=== PATIENT | female | born 1990 | race Caucasian/White ===

== ENCOUNTER 2020-05-15 16:04 | Inpatient (IN) | payer BC, OTHER ==
[~2020-05-15] VITALS: Ht 162.6 cm; Wt 55.3 kg
[~2020-05-15 16:04] MED LIST: CELEXA10 MG ORAL; HUMALOG 75/255 UNIT1 SUBQ
[2020-05-15 16:16] VITALS: BP 104/58
--- NOTE | 2020-05-15 16:16 | NUR ---
ED Nurse Note: Pt walked in to ED from home c/o hyperglycemia. Per pt, her BS at home was at 500. Pt also c/o nausea/ vomiting, wekaness, dizziness. Stated that her blood sugar has been relatively high for the past 5 days, pt is very compliant with her insulin pump. AAOx4, verbally responsive. No SOB, on room air. ERMD at bedside.
--- NOTE | 2020-05-15 16:20 | NUR ---
ED Nurse Note: IV line established. Blood and urine specimen collected and sent to lab.
--- NOTE | 2020-05-15 16:26 | Emergency Room Report ---
History of Present Illness General Chief Complaint: Abnormal Labs Source: Patient Present Illness HPI Patient is a 29-year-old female past medical history of diabetes type 1 on an insulin pump diagnosed which was 14 who presents to the ER complaining of generalized weakness for the past several days. Patient states that she is woken up in the morning feeling very weak and dizzy. She states that she has had urinary frequency. She also complains of nausea and nonbilious nonbloody vomitus. She denies any fever or chills. She denies any chest pain or shortness of breath. She denies any abdominal pain or diarrhea. She states that she has been waiting on her insulin pump supplies for the past 2 weeks but has backup insulin that she has been administering. She states that her blood sugar at home was over 500. Allergies: Coded Allergies: NO KNOWN ALLERGIES (Unverified Allergy, Unknown, 08/20/15) COVID-19 Screening Contact w/high risk pt: No Experienced COVID-19 symptoms?: No COVID-19 Testing performed OUTPATIENT THERAPIST: No Patient History Social History: Denies: smoking, alcohol use, drug use Last Menstrual Period: 06/06/20 Reviewed Nursing Documentation: PMH: Agreed; PSxH: Agreed Nursing Documentation-PMH Past Medical History: No History, Except For Hx Cardiac Problems: No Hx Diabetes: Yes - Type 1 Hx Cancer: No Hx Gastrointestinal Problems: No Hx Neurological Problems: No Review of Systems All Other Systems: negative except mentioned in HPI Physical Exam Vital Signs Date Time Temp Pulse Resp B/P (MAP) Pulse Ox O2 Delivery O2 Flow Rate FiO2 05/15/20 16:12 98.2 83 18 104/58 (73) 98 Room Air Sp02 EP Interpretation: reviewed, normal General Appearance: no apparent distress, alert, GCS 15, non-toxic Head: normocephalic, atraumatic Eyes: bilateral eye normal inspection, bilateral eye PERRL ENT: hearing grossly normal, normal pharynx, no angioedema, normal voice, dry mucus membranes Neck: full range of motion, supple/symm/no masses Respiratory: chest non-tender, lungs clear, normal breath sounds, speaking full sentences Cardiovascular #1: regular rate, rhythm, no edema Gastrointestinal: normal bowel sounds, non tender, soft, non-distended, no guarding, no rebound Rectal: deferred Genitourinary: no CVA tenderness Musculoskeletal: normal range of motion 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 Due to a high probability of clinically significant, life threatening deterioration, the patient required my highest level of preparedness to intervene emergently and I personally spent this critical care time directly and personally managing the patient. This critical care time included obtaining a history; examining the patient; pulse oximetry; ordering and review of studies; arranging urgent treatment with development of a management plan; evaluation of patient's response to treatment; frequent reassessment; and, discussions with other providers.This critical care time was performed to assess and manage the high probability of imminent, life- threatening deterioration that could result in multi-organ failure. It was exclusive of separately billable procedures and treating other patients and teaching time. Please see MDM section and the rest of the note for further information on patient assessment and treatment. Medical Decision Making Diagnostic Impression: Primary Impression: Diabetic ketoacidosis Additional Impression: Diabetes type 1, uncontrolled ER Course Patient presents with DKA. Patient is hyperglycemic and acidotic. Lactate is mildly elevated at 2.5 and pH on venous blood gas is 7.2. Patient CO2 is low and anion gap is 19. Patient has been given IV fluids as well as 7 units of insulin as a drip and initial bolus. Patient's potassium is only 4.2 therefore I ordered for continuous potassium in half-normal saline at 125/h. Patient's vital signs have been stable. She will be admitted for further treatment and evaluation. Laboratory Tests Test 05/15/20 16:35 05/15/20 16:47 05/15/20 17:41 White Blood Count 7.3 K/UL (4.8-10.8) Red Blood Count 3.85 M/UL (4.20-5.40) L Hemoglobin 11.9 G/DL (12.0-16.0) L Hematocrit 35.8 % (37.0-47.0) L Mean Corpuscular Volume 93 FL (80-99) Mean Corpuscular Hemoglobin 31.0 PG (27.0-31.0) Mean Corpuscular Hemoglobin Concent 33.4 G/DL (32.0-36.0) Red Cell Distribution Width 12.0 % (11.6-14.8) Platelet Count 150 K/UL (150-450) Mean Platelet Volume 9.9 FL (6.5-10.1) Neutrophils (%) (Auto) 79.3 % (45.0-75.0) H Lymphocytes (%) (Auto) 15.9 % (20.0-45.0) L Monocytes (%) (Auto) 4.1 % (1.0-10.0) Eosinophils (%) (Auto) 0.1 % (0.0-3.0) Basophils (%) (Auto) 0.6 % (0.0-2.0) Urine Color Pale yellow Urine Appearance Clear Urine pH 5 (4.5-8.0) Urine Specific [place] 1.005 (1.005-1.035) Urine Protein Negative (NEGATIVE) Urine Glucose (UA) 4+ (NEGATIVE) H Urine Ketones 3+ (NEGATIVE) H Urine Blood 3+ (NEGATIVE) H Urine Nitrite Negative (NEGATIVE) Urine Bilirubin Negative (NEGATIVE) Urine Urobilinogen Normal MG/DL (0.0-1.0) Urine Leukocyte Esterase Negative (NEGATIVE) Urine RBC 5-10 /HPF (0 - 2) H Urine WBC 0-2 /HPF (0 - 2) Urine Squamous Epithelial Cells Occasional /LPF Urine Bacteria Few /HPF (NONE) Sodium Level 131 MMOL/L (136-145) L Potassium Level 4.2 MMOL/L (3.5-5.1) Chloride Level 95 MMOL/L (98-107) L Carbon Dioxide Level 17 MMOL/L (21-32) L Anion Gap 19 mmol/L (5-15) H Blood Urea Nitrogen 9 mg/dL (7-18) Creatinine 1.2 MG/DL (0.55-1.30) Estimated Glomerular Filtration Rate 53.5 mL/min (>60) Glucose Level 557 MG/DL (74-106) *H Lactic Acid Level 2.60 mmol/L (0.4-2.0) H 2.00 mmol/L (0.66-2.22) Calcium Level 9.1 MG/DL (8.5-10.1) Magnesium Level 2.1 MG/DL (1.8-2.4) Total Bilirubin 0.3 MG/DL (0.2-1.0) Aspartate Amino Transferase (AST) 15 U/L (15-37) Alanine Aminotransferase (ALT) 12 U/L (12-78) Alkaline Phosphatase 80 U/L (46-116) Total Protein 7.1 G/DL (6.4-8.2) Albumin 4.0 G/DL (3.4-5.0) Globulin 3.1 g/dL Albumin/Globulin Ratio 1.3 (1.0-2.7) Lipase 83 U/L (73-393) Human Chorionic Gonadotropin, Qual Negative (NEGATIVE) Urine Opiates Screen Negative (NEGATIVE) Urine Barbiturates Screen Negative (NEGATIVE) Phencyclidine (PCP) Screen Negative (NEGATIVE) Urine Amphetamines Screen Negative (NEGATIVE) Urine Benzodiazepines Screen Negative (NEGATIVE) Urine Cocaine Screen Negative (NEGATIVE) Urine Marijuana (THC) Screen Negative (NEGATIVE) Venous Blood pH 7.292 Venous Blood Partial Pressure CO2 36.0 Venous Blood Partial Pressure O2 34.3 Venous Blood HCO3 17.0 Venous Blood Total Carbon Dioxide 36.0 Venous Blood Base Excess -8.7 Venous Blood Carboxyhemoglobin 0.3 % (0.5-1.5) L Methemoglobin 0.8 Acetone Level Positive-small (NEGATIVE) EKG Diagnostic Results Troponin ordered: No - EKG ordered for dizziness secondary to hyperglycemia EKG Time: 16:27 EP Interpretation: Shyanne Keller MD Rate: normal - 75 bpm Rhythm: NSR ST Segments: no acute changes ASA given to the pt in ED: No Rhythm Strip Diag. Results Rhythm Strip Time: 17:32 EP Interpretation: yes - Shyanne Keller MD Rate: 85 bpm Rhythm: NSR, no PVC's, no ectopy Last Vital Signs Date Time Temp Pulse Resp B/P (MAP) Pulse Ox O2 Delivery O2 Flow Rate FiO2 05/15/20 16:16 98.2 83 18 104/58 98 Room Air Disposition: ADMITTED INPATIENT - ICU Condition: Critical Physician Consult: Dr. Tam at 1855 Additional Instructions: Please note that this report is being documented using Sense[employer] technology. This can lead to erroneous entry secondary to incorrect interpretation by the dictating instrument. Shyanne Keller M.D. May 15, 2020 16:26
[2020-05-15 16:59] LABS: APPEARANCE,URINE CLEAR; BILIRUBIN, URINE NEGATIVE (NEGATIVE); COLOR,URINE PALE YELLOW; GLUCOSE, URINE (UA) 4+ (NEGATIVE); KETONES,URINE 3+ (NEGATIVE); LEUKOCYTE ESTERASE ,URINE NEGATIVE (NEGATIVE); NITRITE,URINE NEGATIVE (NEGATIVE); PH,URINE 5 (4.5-8.0); PROTEIN,URINE NEGATIVE (NEGATIVE); UROBILINOGEN,URINE NORMAL MG/DL (0.0-1.0)
[2020-05-15] MEDS ORDERED: Insulin Human Regular 100units/ml 3ml IV ONE (17:00)
[2020-05-15 17:03] LABS: BASOPHILS % (AUTO) 0.6 % (0.0-2.0); EOSINOPHILS % (AUTO) 0.1 % (0.0-3.0); HEMATOCRIT 35.8 % (37.0-47.0); HEMOGLOBIN 11.9 G/DL (12.0-16.0); LYMPHOCYTES % (AUTO) 15.9 % (20.0-45.0); MEAN CORPUSCULAR VOLUME 93 FL (80-99); MONOCYTES % (AUTO) 4.1 % (1.0-10.0); NEUTROPHILS % (AUTO) 79.3 % (45.0-75.0); PLATELET COUNT 150 K/UL (150-450); RED BLOOD COUNT 3.85 M/UL (4.20-5.40); WHITE BLOOD COUNT 7.3 K/UL (4.8-10.8)
[2020-05-15 17:29] LABS: ALBUMIN/GLOBULIN RATIO 1.3 (1.0-2.7); BILIRUBIN,TOTAL 0.3 MG/DL (0.2-1.0); CALCIUM 9.1 MG/DL (8.5-10.1); CREATININE 1.2 MG/DL (0.55-1.30); POTASSIUM 4.2 MMOL/L (3.5-5.1)
[2020-05-15] MEDS ORDERED: Insulin Reg 100 units Premix 100 ML IVPB SCH (17:45)
[2020-05-15] MEDS: 1/2NS w/KCl 20mEq 1000ml 1,000 ML IV SCH (18:03)
--- NOTE | 2020-05-15 19:03 | NUR ---
HAND-OFF: Report given to Leeann MONTE.
[2020-05-15 19:30] VITALS: BP 107/71
[2020-05-15] MEDS ORDERED: LORazepam Inj 2mg/ml 1ml IV PRN (19:30)
[2020-05-15] MEDS ORDERED: Albuterol/Ipratropium 3ml neb HHN PRN (19:30)
[2020-05-15] MEDS ORDERED: Morphine Sulfate 4mg/ml Inj (IV USE ONLY) IVP PRN (19:30)
[2020-05-15] MEDS ORDERED: Insulin Human Regular 100units/ml 3ml IV PRN ×2 (19:30)
[2020-05-15] MEDS ORDERED: Nitroglycerin Subl 0.4mg tab SL PRN (19:30)
[2020-05-15] MEDS ORDERED: Insulin Rate Change 1 Each MISC PRN (19:30)
[2020-05-15] MEDS ORDERED: Miralax 17gm pkt ORAL PRN (19:30)
--- NOTE | 2020-05-15 19:30 | NUR ---
ED Nurse Note: received patient from emerson austin. patient resting in bed with no acute distress. vitals stable tobaseline. iv infusion running as prescribed left hand 22 g and left forarm 20 g noted; intact and patent. discussed plan of care with patient; aware of pending admission. all safety measures met.
[2020-05-15 20:29] LABS: ANION GAP 11 mmol/L (5-15); BLOOD UREA NITROGEN 7 mg/dL (7-18); CALCIUM 7.9 MG/DL (8.5-10.1); CARBON DIOXIDE 22 MMOL/L (21-32); CHLORIDE 107 MMOL/L (98-107); CREATININE 0.9 MG/DL (0.55-1.30); POTASSIUM 3.2 MMOL/L (3.5-5.1); SODIUM 140 MMOL/L (136-145)
[2020-05-15 20:36] LABS: ALANINE AMINOTRANSFERASE 13 U/L (12-78); ALBUMIN 3.3 G/DL (3.4-5.0); ALBUMIN/GLOBULIN RATIO 1.2 (1.0-2.7); ALKALINE PHOSPHATASE 66 U/L (46-116); ASPARTATE AMINO TRANSFERASE 11 U/L (15-37); BILIRUBIN,TOTAL 0.2 MG/DL (0.2-1.0)
[2020-05-15 21:08] VITALS: BP 104/61
[2020-05-15] MEDS ORDERED: Insulin Reg 100 units Premix 100 ML IV SCH (22:00)
[2020-05-15] MEDS: Heparin 5000 units/ml inj SUBQ SCH (22:00)
--- NOTE | 2020-05-15 22:15 | NUR ---
ED Nurse Note: spoke with mak esteves and ermcielo. received er and floor order to d/c insulin drip. per primary and ermd, patient to be downgraded to SDU. updated patient with plan of care; states understand and compliance.
--- NOTE | 2020-05-15 22:30 | NUR ---
ED Nurse Note: insulin drip d/c per md order. reassessed blood glucose; 45. notified ermd. received verbal and written order for d50W ivp and feed patient. noted and carried out. (see downtime md order form)
[2020-05-16] VITALS (7 sets, daily range): BP systolic 87–121; BP diastolic 39–70
--- NOTE | 2020-05-16 | NUR ---
ED Nurse Note: reassessed blood glucose; 195. patient ao4 asymptomatic.
[2020-05-16] MEDS ORDERED: LEXAPRO20 MG ORAL (00:36)
[2020-05-16] MEDS ORDERED: GABAPENTIN100 MG ORAL (00:36)
--- NOTE | 2020-05-16 00:40 | NUR ---
TRANSFER TO FLOOR: Patient transferred to sdu 245-1 as ordered, per love esteves. report given to cathleen austin. patient stable for transport. transferred to unit via gurney with 2 rn. belongings and admission packet sent with patient.
--- NOTE | 2020-05-16 00:45 | NUR ---
NURSE NOTES: received pt from Silverio Umaña RN from ER. pt is awake and AOx4 at this time. pt states no pain at this time. pt bilateral eyes PERLLA 3mm. able to follow all the commands, no skin issue. pt has steady gait. left hand 22g left FA 20G IV sites are intact, clean, and patent. no allergies noted. all assessment done with pt. belonging list signed by pt. 15 pills founded from pt's belongings and put in the security bag receipt # [id number]. will send down to pharmacy in AM. call light within reach. will continue to monitor pt with plan of care. bed at the lowest positioned, alarmed, and locked. will continue to monitor pt with plan of care.
--- NOTE | 2020-05-16 00:46 | NUR ---
NURSE NOTES: pt is in RA no SOB noted, O2sat is at 100%.
--- NOTE | 2020-05-16 00:47 | NUR ---
NURSE NOTES: purchasing administrator on, VS stable. new gown and new blanket provided.
--- NOTE | 2020-05-16 01:34 | NUR ---
ED Nurse Note: 1st bag of [id number] initiated at 100ml/hr.
[2020-05-16] MEDS: 1/2NS w/KCl 20mEq 1000ml 1,000 ML IV SCH ×3 (01:45→17:01)
--- NOTE | 2020-05-16 01:45 | NUR ---
NURSE NOTES: non-admin for 1/2 NS with KCL 20meq that is scheduled on 0145 due to order from ER.
--- NOTE | 2020-05-16 02:35 | NUR ---
ED Nurse Note: continued [id number] infusion with 2nd bag with a rate of 100ml/hr.
--- NOTE | 2020-05-16 02:39 | NUR ---
NURSE NOTES: left voice mail to Dr. Wolff regarding admission order. and notified pt's Insulin is 266 at this time after getting D50% due to low BS (45)from ER. will wait for call back. call light within reach. will continue to monitor pt.
--- NOTE | 2020-05-16 04:01 | NUR ---
NURSE NOTES: pt is sleeping at this moment, no SOB noted. will continue to monitor pt,. call light within reach.
[2020-05-16 04:54] LABS: ANION GAP 10 mmol/L (5-15); BLOOD UREA NITROGEN 4 mg/dL (7-18); CALCIUM 8.1 MG/DL (8.5-10.1); CARBON DIOXIDE 22 MMOL/L (21-32); CHLORIDE 103 MMOL/L (98-107); POTASSIUM 4.1 MMOL/L (3.5-5.1); SODIUM 135 MMOL/L (136-145)
[2020-05-16 05:32] LABS: ALANINE AMINOTRANSFERASE 8 U/L (12-78); ALBUMIN 3.4 G/DL (3.4-5.0); ALKALINE PHOSPHATASE 70 U/L (46-116); ASPARTATE AMINO TRANSFERASE 20 U/L (15-37); BILIRUBIN,DIRECT < 0.1 MG/DL (0.0-0.3); BILIRUBIN,TOTAL 0.2 MG/DL (0.2-1.0); PHOSPHORUS 3.4 MG/DL (2.5-4.9)
--- NOTE | 2020-05-16 06:54 | NUR ---
NURSE NOTES: notified Dr. Wolff regarding pt's high blood sugar, 402 at 0500 AM. and now 0630 Blood Sugar is 382 after insulin given. will wait for call back. call light within reach. will continue to monitor pt.
--- NOTE | 2020-05-16 07:38 | NUR ---
NURSE HAND-OFF REPORT: Important Events on Shift: high BS, please follow up on sliding scale on BS Patient Status: stable Diet: NPO Pending Orders: n.a Pending Results/Labs:n/a Pending MD notification: Dr. Wolff regarding still high BS. Latest Vital Signs: Temperature 98.0 , Pulse 84 , B/P 119 /57 , Respiratory Rate 20 , O2 SAT 98 , Room Air, O2 Flow Rate . Vital Sign Comment: stable EKG Rhythm: Sinus Rhythm Rhythm change?: N MD Notified?: - MD Response: Latest Simons Fall Score: 35 Fall Risk: Medium Risk Safety Measures: Call light , Bed Alarm Zone 3, Side Rails Side Rails x3, Bed position Low and Locked. Fall Precautions: Yellow Socks Yellow Gown Door Sign Patient Fall Education Report given to Carolina BARRERA,
--- NOTE | 2020-05-16 07:40 | NUR ---
NURSE NOTES: Report received from Se Raya RN.Pt awake,alert sitting up on bed noted no resp distress on RA,no signs of pain or discomfort,SR on the monitor,kept NPO,skin warm and dry IV site to LFA and LH intact with IVF NS at 150 ml/hr,SR up x2 HOB elevated bed lock in low position,will continue with plans of care.
[2020-05-16] MEDS: Heparin 5000 units/ml inj SUBQ SCH ×2 (09:26→21:07)
--- NOTE | 2020-05-16 09:30 | NUR ---
NURSE NOTES: Pt up to bathroom with steady gait, pt voided and vomitting inside the bathroom.Verbalized feeling hungry. Pt informed that Dr Wolff will come and make rounds anytime soon.
--- NOTE | 2020-05-16 10:02 | NUR ---
CASE MANAGEMENT: INITIAL REVIEW 05/15/2020 29 YO F PRESENTED TO ED FROM HOME CC: BLOOD SUGAR 526 PMHx; DM1 SI;DKA VS: T 98.2 HR 83 RR 18 B/P 104/58 SATS 98% ON RA LABS: NA 131 CL 95 CO2 17 GLU 557 LACTIC ACID 2.6 UA (+KETONES AND ACETONE) IS:NS BOLUS X2 HUMAN INSULIN 7 UNITS IV X1 INSULIN DRIP INITIATED KCL IV X1 PATIENT ADMITTED TO SDU 05/15/2020 @ 1850 DCP: HOME CONCURRENT REVIEW FOR 05/16/2020 SI;DKA T 98.1 HR 84 RR 20 B/P 119/57 SATS 98% ON RA LABS: NA 135 BUN 4 GLU 377 CA 8.1 IS:NS @ 150 ML/HR SDU
--- NOTE | 2020-05-16 11:11 | Consultation ---
History of Present Illness General Date patient seen: May 16, 2020 Chief Complaint: Abnormal Labs Present Illness HPI 29-year-old female with PMHx of diabetes since age 15, on an insulin pump presented to the ER complaining of generalized weakness for the past several days. She states that she has had urinary frequency. She also complains of nausea and nonbilious nonbloody vomitus. She states that she has been waiting on her insulin pump supplies for the past 2 weeks but has backup insulin that she has been administering. She states that her blood sugar at home was over 500. She received aggressive IV hydration and Insulin in ER and admitted to [facility] for further treatment. Allergies: Coded Allergies: NO KNOWN ALLERGIES (Unverified Allergy, Unknown, 08/20/15) Medication History Scheduled Citalopram Hydrobromide (Celexa), 20 MG ORAL DAILY, (Reported) Escitalopram Oxalate* (Lexapro*), 20 MG ORAL BID, (Reported) Gabapentin* (Gabapentin*), 100 MG ORAL PRN, (Reported) Miscellaneous Medications Insulin Human Lispro (Humalog), 0.5 SUBQ, (Reported) Patient History Healthcare decision maker Resuscitation status Advanced Directive on File Past Medical/Surgical History Past Medical/Surgical History: (1) Diabetes mellitus Review of Systems All Other Systems: negative except mentioned in HPI Physical Exam General Appearance: thin Lines, tubes and drains: peripheral HEENT: normocephalic, atraumatic Neck: non-tender, normal alignment Respiratory/Chest: chest wall non-tender, lungs clear, normal breath sounds Abdomen: normal bowel sounds, non tender Genitourinary/Rectal: normal genital exam Extremities: normal range of motion, non-tender 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 II-XII grossly normal Last 24 Hour Vital Signs Date Time Temp Pulse Resp B/P (MAP) Pulse Ox O2 Delivery O2 Flow Rate FiO2 05/16/20 08:00 98.1 68 18 121/70 (87) 97 05/16/20 08:00 78 05/16/20 04:00 Room Air 05/16/20 04:00 98.0 84 20 119/57 (77) 98 05/16/20 03:58 69 05/16/20 01:22 Room Air 05/16/20 01:09 74 05/16/20 00:40 98.2 72 16 110/60 99 Room Air 05/16/20 00:00 98.2 72 16 110/60 99 Room Air 05/15/20 21:08 98.2 74 13 104/61 100 Room Air 05/15/20 19:30 98.2 75 13 107/71 100 Room Air 05/15/20 16:16 98.2 83 18 104/58 98 Room Air 05/15/20 16:12 98.2 83 18 104/58 (73) 98 Room Air Intake and Output 05/15/20 05/16/20 19:00 07:00 Intake Total 1000 ml Balance 1000 ml Intake IV Total 1000 ml # Voids 4 Laboratory Tests Test 05/15/20 16:35 05/15/20 16:47 05/15/20 17:41 05/15/20 19:30 White Blood Count 7.3 K/UL (4.8-10.8) Red Blood Count 3.85 M/UL (4.20-5.40) L Hemoglobin 11.9 G/DL (12.0-16.0) L Hematocrit 35.8 % (37.0-47.0) L Mean Corpuscular Volume 93 FL (80-99) Mean Corpuscular Hemoglobin 31.0 PG (27.0-31.0) Mean Corpuscular Hemoglobin Concent 33.4 G/DL (32.0-36.0) Red Cell Distribution Width 12.0 % (11.6-14.8) Platelet Count 150 K/UL (150-450) Mean Platelet Volume 9.9 FL (6.5-10.1) Neutrophils (%) (Auto) 79.3 % (45.0-75.0) H Lymphocytes (%) (Auto) 15.9 % (20.0-45.0) L Monocytes (%) (Auto) 4.1 % (1.0-10.0) Eosinophils (%) (Auto) 0.1 % (0.0-3.0) Basophils (%) (Auto) 0.6 % (0.0-2.0) Urine Color Pale yellow Urine Appearance Clear Urine pH 5 (4.5-8.0) Urine Specific [place] 1.005 (1.005-1.035) Urine Protein Negative (NEGATIVE) Urine Glucose (UA) 4+ (NEGATIVE) H Urine Ketones 3+ (NEGATIVE) H Urine Blood 3+ (NEGATIVE) H Urine Nitrite Negative (NEGATIVE) Urine Bilirubin Negative (NEGATIVE) Urine Urobilinogen Normal MG/DL (0.0-1.0) Urine Leukocyte Esterase Negative (NEGATIVE) Urine RBC 5-10 /HPF (0 - 2) H Urine WBC 0-2 /HPF (0 - 2) Urine Squamous Epithelial Cells Occasional /LPF Urine Bacteria Few /HPF (NONE) Sodium Level 131 MMOL/L (136-145) L 140 MMOL/L (136-145) Potassium Level 4.2 MMOL/L (3.5-5.1) 3.2 MMOL/L (3.5-5.1) L Chloride Level 95 MMOL/L (98-107) L 107 MMOL/L (98-107) Carbon Dioxide Level 17 MMOL/L (21-32) L 22 MMOL/L (21-32) Anion Gap 19 mmol/L (5-15) H 11 mmol/L (5-15) Blood Urea Nitrogen 9 mg/dL (7-18) 7 mg/dL (7-18) Creatinine 1.2 MG/DL (0.55-1.30) 0.9 MG/DL (0.55-1.30) Estimat Glomerular Filtration Rate 53.5 mL/min (>60) > 60 mL/min (>60) Glucose Level 557 MG/DL (74-106) *H 241 MG/DL (74-106) #H Lactic Acid Level 2.60 mmol/L (0.4-2.0) H 2.00 mmol/L (0.66-2.22) Calcium Level 9.1 MG/DL (8.5-10.1) 7.9 MG/DL (8.5-10.1) L Magnesium Level 2.1 MG/DL (1.8-2.4) Total Bilirubin 0.3 MG/DL (0.2-1.0) 0.2 MG/DL (0.2-1.0) Aspartate Amino Transf (AST/SGOT) 15 U/L (15-37) 11 U/L (15-37) L Alanine Aminotransferase (ALT/SGPT) 12 U/L (12-78) 13 U/L (12-78) Alkaline Phosphatase 80 U/L (46-116) 66 U/L (46-116) Total Protein 7.1 G/DL (6.4-8.2) 6.1 G/DL (6.4-8.2) L Albumin 4.0 G/DL (3.4-5.0) 3.3 G/DL (3.4-5.0) L Globulin 3.1 g/dL 2.8 g/dL Albumin/Globulin Ratio 1.3 (1.0-2.7) 1.2 (1.0-2.7) Lipase 83 U/L (73-393) Human Chorionic Gonadotropin, Qual Negative (NEGATIVE) Urine Opiates Screen Negative (NEGATIVE) Urine Barbiturates Screen Negative (NEGATIVE) Phencyclidine (PCP) Screen Negative (NEGATIVE) Urine Amphetamines Screen Negative (NEGATIVE) Urine Benzodiazepines Screen Negative (NEGATIVE) Urine Cocaine Screen Negative (NEGATIVE) Urine Marijuana (THC) Screen Negative (NEGATIVE) Venous Blood pH 7.292 Venous Blood Partial Pressure CO2 36.0 Venous Blood Partial Pressure O2 34.3 Venous Blood HCO3 17.0 Venous Blood Total Carbon Dioxide 36.0 Venous Blood Base Excess -8.7 Venous Blood Carboxyhemoglobin 0.3 % (0.5-1.5) L Methemoglobin 0.8 Acetone Level Positive-small (NEGATIVE) Test 05/16/20 01:19 05/16/20 03:00 05/16/20 05:13 05/16/20 06:48 POC Whole Blood Glucose Pending 402 MG/DL (74-106) H Pending Prothrombin Time 11.1 SEC (9.30-11.50) Prothromb Time International Ratio 1.0 (0.9-1.1) Activated Partial Thromboplast Time 25 SEC (23-33) Sodium Level 135 MMOL/L (136-145) L Potassium Level 4.1 MMOL/L (3.5-5.1) Chloride Level 103 MMOL/L (98-107) Carbon Dioxide Level 22 MMOL/L (21-32) Anion Gap 10 mmol/L (5-15) Blood Urea Nitrogen 4 mg/dL (7-18) L Creatinine 1.0 MG/DL (0.55-1.30) Estimat Glomerular Filtration Rate > 60 mL/min (>60) Glucose Level 377 MG/DL (74-106) #H Calcium Level 8.1 MG/DL (8.5-10.1) L Phosphorus Level 3.4 MG/DL (2.5-4.9) Total Bilirubin 0.2 MG/DL (0.2-1.0) Direct Bilirubin < 0.1 MG/DL (0.0-0.3) Aspartate Amino Transf (AST/SGOT) 20 U/L (15-37) Alanine Aminotransferase (ALT/SGPT) 8 U/L (12-78) L Alkaline Phosphatase 70 U/L (46-116) Total Protein 5.8 G/DL (6.4-8.2) L Albumin 3.4 G/DL (3.4-5.0) Test 05/16/20 09:22 POC Whole Blood Glucose Pending Height (Feet): 5 Height (Inches): 4.00 Weight (Pounds): 121 Medications Current Medications Medications (Trade) Dose Ordered Sig/Kathi Route PRN Reason Start Time Stop Time Status Last Admin Dose Admin Acetaminophen (Tylenol) 650 mg Q4H PRN ORAL Fever 05/15/20 19:30 06/14/20 19:29 Albuterol/ Ipratropium (Albuterol/ Ipratropium) 3 ml Q4H PRN HHN Shortness of Breath 05/15/20 19:30 05/20/20 19:29 Dextrose (Dextrose 50%) 25 ml Q30M PRN IV HYPOGLYCEMIA 05/15/20 19:30 08/13/20 19:29 Dextrose (Dextrose 50%) 50 ml Q30M PRN IV Hypoglycemia 05/15/20 19:30 08/13/20 19:29 Heparin Sodium (Porcine) (Heparin 5000 units/ml) 5,000 units EVERY 12 HOURS SUBQ 05/15/20 22:00 06/29/20 21:59 05/16/20 09:26 Insulin Human Regular (NovoLIN R) 5 units PRN PRN IV BS 200-299 05/15/20 19:30 08/13/20 19:29 Insulin Human Regular (NovoLIN R) 10 units PRN PRN IV BS=>300 05/15/20 19:30 08/13/20 19:29 05/16/20 05:41 Lorazepam (Ativan 2mg/ml 1ml) 2 mg Q2H PRN IV agitation 05/15/20 19:30 05/22/20 19:29 Miscellaneous Medication (Insulin Rate Change) 1 ea PRN PRN MISC To Patient Comfort 05/15/20 19:30 08/13/20 19:29 Morphine Sulfate (Morphine Sulfate) 4 mg Q4H PRN IVP Severe Pain (Pain Scale 7-10) 05/15/20 19:30 05/22/20 19:29 Nitroglycerin (Ntg) 0.4 mg Q5M PRN SL Prn Chest Pain 05/15/20 19:30 06/14/20 19:29 Ondansetron HCl (Zofran) 4 mg Q6H PRN IVP Nausea & Vomiting 05/15/20 19:30 06/14/20 19:29 Polyethylene Glycol (Miralax) 17 gm DAILYPRN PRN ORAL Constipation 05/15/20 19:30 06/14/20 19:29 Sodium 1,000 ml @ 125 mls/hr Q8H IV 05/15/20 17:45 06/14/20 17:44 05/15/20 18:03 Sodium Chloride 1,000 ml @ 150 mls/hr Q6H40M IV 05/15/20 22:00 06/14/20 21:59 05/16/20 05:09 Assessment/Plan Problem List: (1) Diabetic ketoacidosis ICD Codes: E13.10 - Other specified diabetes mellitus with ketoacidosis without coma SNOMED: 48829602, [id number] Assessment/Plan: iv fluids anion gap closed already symptomatic treatment sliding scale endocrinology to see dvt prophylaxis symptomatic treatment. Sterling Wolff MD May 16, 2020 11:11
--- NOTE | 2020-05-16 11:30 | NUR ---
NURSE NOTES: Dr Wolff at bedside,orders for diet ordered.Informed re pt's low BP87/39,ordered for 1 L bolus of NS.
--- NOTE | 2020-05-16 12:00 | NUR ---
NURSE NOTES: BS 525 ,pt given 14 units of Novolog Insulin SQ as pre MD order.
--- NOTE | 2020-05-16 13:30 | NUR ---
NURSE NOTES: Pt's BP normalized after giving 1 L of NS BP 116/54,pt verbalized feeling much better.
--- NOTE | 2020-05-16 13:47 | NUR ---
PROJECT DEVELOPMENT LEADER NOTE SW met w/ pt to discuss case management social worker concerns/screen SI. Pt presents as A&O4x. PT resides w/ her parents at [address], [place] [address]. Pt reports hx of Anxiety, currently taking Lexapro and Gabapentin, seeing the outpatient psychiatrist and therapist. Pt denies having suicidal thoughts/ideation. Pt does not have any social service concerns/needs at this time. Emergency contacts: Owen Barraza (step father) [phone] and Gretel (mother) [phone]
--- NOTE | 2020-05-16 15:57 | History & Physical ---
History and Physical History & Physicial Derek Brandt MD May 16, 2020 15:57
--- NOTE | 2020-05-16 16:20 | Cardiology Report ---
APPROVED REPORT EKG Measurement Heart [id number] MD [id number] <Conclusion> Normal sinus rhythm with sinus arrhythmia Normal ECG
[2020-05-16] MEDS: NovoLOG Insulin Flexpen SUBQ SCH ×2 (16:59→21:07)
--- NOTE | 2020-05-16 17:00 | NUR ---
NURSE NOTES: Pt stable,BP 111/57 ,BS 292,covered with insulin sliding scale,pt verbalized feeling better.
--- NOTE | 2020-05-16 17:26 | NUR ---
INSURANCE FAXED PROGRESS NOTES AND REVIEW TO [facility] [place] P:[phone] F:[phone] (FAX CLINICALS)
[2020-05-16] MEDS ORDERED: BENADRYL25 MG ORAL (18:54)
[2020-05-16] MEDS ORDERED: VITAMIN D325 MC1 PO (18:54)
--- NOTE | 2020-05-16 19:07 | NUR ---
NURSE HAND-OFF REPORT: Important Events on Shift:BS down to 292,BP normal 111/57 Patient Status: Stable Diet: Pending Orders: N/A Pending Results/Labs:N/A Pending MD notification:N/A Latest Vital Signs: Temperature 98.4 , Pulse 109 , B/P 111 /57 , Respiratory Rate 18 , O2 SAT 100 , Room Air, O2 Flow Rate . Vital Sign Comment: EKG Rhythm: Sinus Rhythm Rhythm change?: N MD Notified?: - MD Response: Latest Simons Fall Score: 35 Fall Risk: Medium Risk Safety Measures: Call light Within Reach, Bed Alarm Zone 2, Side Rails Side Rails x2, Bed position Low and Locked. Fall Precautions: Yellow Socks Yellow Gown Door Sign Patient Fall Education Report given to Se Raya RN..
--- NOTE | 2020-05-16 19:08 | NUR ---
NURSE NOTES: received pt from Erica Adkins RN. pt is awake and AOx4 at this time. pt states no pain at this time. no SOB noted pt is in RA, O2 sat is at 100%. pt bilateral eyes PERLLA 3 mm. able to follow all the commands, no skin issue noted. left hand 22g left FA 20G IV sites are intact, clean, and patent. no active bleeding noted. pt states no feeling of N/V. ABD soft, round and no tender noted. call light within reach. will continue to monitor pt with plan of care. bed at the lowest positioned, alarmed, and locked. will continue to monitor pt with plan of care.
--- NOTE | 2020-05-16 20:40 | NUR ---
NURSE NOTES: pt family at the bedside. call light within reach.
--- NOTE | 2020-05-16 23:00 | History and Physical Report ---
DATE OF ADMISSION: 05/15/2020 CHIEF COMPLAINT: Weakness, fatigue, abnormal labs. HISTORY OF PRESENT ILLNESS: This 29-year-old female with past medical history significant for diabetes type 1, was on an insulin pump, as well as history of depression and anxiety with prior history of suicidal ideation, who presented to the hospital complaining about elevated blood glucose level. The patient was noted that she ran out of insulin from the insulin pump and was giving herself insulin injection. She woke up in the morning and felt very weak and dizzy. She stated that she felt that she has urinary tract infection associated with nausea and nonbilious, nonbloody emesis. The patient denies any fever, chills, chest pain, shortness of breath, abdominal pain, or diarrhea. She has been waiting to get her insulin pump supply for the past two weeks and noted that blood glucose was over 500. Shortly after initial evaluation in the emergency department, the patient was admitted to the hospital with DKA. PAST MEDICAL HISTORY/PAST SURGICAL HISTORY: As above, history of insulin-dependent diabetic type 1, depression and anxiety. MEDICATIONS AT HOME: Significant for insulin, Lexapro 20 mg p.o. nightly, and gabapentin p.r.n. ALLERGIES: No known drug allergies. SOCIAL HISTORY: The patient denies any smoking, alcohol, or drugs. 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 FAMILY HISTORY: Noncontributory. REVIEW OF SYSTEMS: Mostly as above. Denies any dysuria, frequency, or hematuria. PHYSICAL EXAMINATION: VITAL SIGNS: On admission, temperature 98.2, pulse of 83, respirations 18, and blood pressure 104/58. GENERAL: The patient is awake and responsive, in no acute distress. HEAD AND NECK: Pupils are equal and reactive to light. Extraocular movements are intact. Neck was supple. No JVD. LUNGS: Good air entry with no wheezing or rales. HEART: S1, S2. Regular rhythm. No gallops. ABDOMEN: Soft, nondistended, and nontender. Positive bowel sounds. EXTREMITIES: No cyanosis, clubbing, or edema. NEUROLOGIC: Cranial nerves II through XII grossly normal. Motor is 5/5 in all extremities. Gait is intact. RECTAL/GENITOURINARY: Refused and deferred. PSYCHIATRIC: Mood and affect is anxious. LABORATORY DATA: On admission, WBC of 7.3, hemoglobin 11, hematocrit 35, platelets 150,000. ABG, pH of 7.29, pCO2 of 36, pO2 of 34. This was venous BG. The patient's sodium is 131, potassium 4.2, chloride 95, bicarb 17, BUN 9, creatinine 1.2. Glucose level is 557. Lactic acid 2.60. Liver functions essentially unremarkable. Beta-HCG is negative. Lipase is 83. PT of 11, INR 1.0, PTT of 25. Urine drug screen is negative. Acetone level is positive, small. Urinalysis - +4 glucose, +3 ketones, negative nitrite, negative leukocytes, 5 to 10 rbc's. ASSESSMENT: 1. Uncontrolled diabetes type 1 with diabetic ketoacidosis. 2. History of depression and anxiety. 3. Hyponatremia. PLAN: Admit the patient to step-down. We will follow up with the aggressive IV hydration. We will monitor blood glucose level closely and we will try to the insulin drip. Follow up with Dr. Wolff, consultation from Pulmonary and Critical Care. Discussed with the patient as well as mother extensively at bedside. DVT prophylaxis, heparin subcutaneous. Code status is Full Code. Derek Brandt M.D. DR: ANAYA JOB#: [id number] CC:
[2020-05-17] VITALS: BP 128/68
[2020-05-17] MEDS: 1/2NS w/KCl 20mEq 1000ml 1,000 ML IV SCH (01:23)
--- NOTE | 2020-05-17 01:23 | NUR ---
NURSE NOTES: 0.45NS KCL 20meq not given because it is order from ER.
--- NOTE | 2020-05-17 03:00 | NUR ---
NURSE NOTES: pt is sleeping at this time, O2sat is at 100%. no SOB noted. call light within reach. will continue to monitor pt.
[2020-05-17 04:00] VITALS: BP 104/59
[2020-05-17] MEDS: NovoLOG Insulin Flexpen SUBQ SCH ×6 (05:33→20:57)
--- NOTE | 2020-05-17 06:59 | NUR ---
NURSE HAND-OFF REPORT: Important Events on Shift: stable, need to follow up with long acting insuline Patient Status: stable Diet: CCHO Pending Orders: n/a Pending Results/Labs:n/a Pending MD notification:n/a Latest Vital Signs: Temperature 98.0 , Pulse 93 , B/P 104 /59 , Respiratory Rate 20 , O2 SAT 100 , Room Air, O2 Flow Rate . Vital Sign Comment: stable EKG Rhythm: Sinus Rhythm Rhythm change?: N MD Notified?: - MD Response: Latest Simons Fall Score: 35 Fall Risk: Medium Risk Safety Measures: Call light Within Reach, Bed Alarm Zone 2, Side Rails Side Rails x2, Bed position Low and Locked. Fall Precautions: Yellow Socks Yellow Gown Door Sign Patient Fall Education Report given to Sienna BARRERA,
--- NOTE | 2020-05-17 07:30 | NUR ---
NURSE NOTES: Received patient alert oriented denies any pain and discomfort. Receiving Ns @ 150 cc/hr at left FA. No sign and symptoms of fluid retention noted.Will continue with the plan of care.
[2020-05-17] MEDS: Heparin 5000 units/ml inj SUBQ SCH ×2 (08:19→20:58)
[2020-05-17 08:29] VITALS: BP 136/66
[2020-05-17 09:28] LABS: ALANINE AMINOTRANSFERASE 39 U/L (12-78); ALBUMIN 3.3 G/DL (3.4-5.0); ALBUMIN/GLOBULIN RATIO 1.1 (1.0-2.7); ALKALINE PHOSPHATASE 71 U/L (46-116); ANION GAP 15 mmol/L (5-15); ASPARTATE AMINO TRANSFERASE 85 U/L (15-37); BILIRUBIN,TOTAL 0.3 MG/DL (0.2-1.0); BLOOD UREA NITROGEN 6 mg/dL (7-18); CALCIUM 8.2 MG/DL (8.5-10.1); CARBON DIOXIDE 18 MMOL/L (21-32); CHLORIDE 104 MMOL/L (98-107); PHOSPHORUS 1.6 MG/DL (2.5-4.9); POTASSIUM 3.7 MMOL/L (3.5-5.1); SODIUM 136 MMOL/L (136-145)
--- NOTE | 2020-05-17 11:30 | NUR ---
NURSE NOTES: Patient blood sugar 412mg/dl given 14 units of insulin. Left message with Dr Castro admissions recruiter for Dr Burns.
[2020-05-17] MEDS ORDERED: Tubing IV Secondary IV ONE (12:07)
[2020-05-17 12:19] VITALS: BP 103/59
[2020-05-17] MEDS: Levemir Flexpen SUBQ SCH ×2 (15:02→20:57)
[2020-05-17 16:00] VITALS: BP 120/59
--- NOTE | 2020-05-17 17:07 | NUR ---
CASE MANAGEMENT:REVIEW SI;DKA. HYPONATREMIA. 99.0 108 20 136/66 100% ON RA BG 431 CA 8.2 AST 85 IS;INSULIN NOVOLOG SUBQ QID INSULIN LEVEMIR SUBQ Q12 HEPARIN SUBQ Q12 IVF NS @ 150 ML/HR SAQIB STATUS DCP;FROM HOME
--- NOTE | 2020-05-17 17:10 | NUR ---
INSURANCE FAXED PROGRESS NOTES AND REVIEW TO [facility] P:[phone] F:[phone] (FAX CLINICALS) AUTH# [id number]
--- NOTE | 2020-05-17 17:52 | Internal Med Progress Note ---
Subjective Date of Service: May 17, 2020 Physician Name Alfredo Chacon Attending Physician Derek Brandt MD Current Medications Medications (Trade) Dose Ordered Sig/Kathi Route PRN Reason Start Time Stop Time Status Last Admin Dose Admin Acetaminophen (Tylenol) 650 mg Q4H PRN ORAL Fever 05/15/20 19:30 06/14/20 19:29 Albuterol/ Ipratropium (Albuterol/ Ipratropium) 3 ml Q4H PRN HHN Shortness of Breath 05/15/20 19:30 05/20/20 19:29 Dextrose (Dextrose 50%) 25 ml Q30M PRN IV Hypoglycemia 05/17/20 14:15 08/15/20 14:14 Dextrose (Dextrose 50%) 50 ml Q30M PRN IV Hypoglycemia 05/17/20 14:15 08/15/20 14:14 Escitalopram Oxalate (Lexapro) 20 mg QHS ORAL 05/16/20 21:00 06/15/20 20:59 05/16/20 21:06 Heparin Sodium (Porcine) (Heparin 5000 units/ml) 5,000 units EVERY 12 HOURS SUBQ 05/15/20 22:00 06/29/20 21:59 05/17/20 08:19 Insulin Aspart (NovoLOG) BEFORE MEALS AND HS SUBQ 05/17/20 16:30 08/15/20 16:29 05/17/20 16:30 Insulin Aspart (NovoLOG) 10 units NOVOTIAC SUBQ 05/17/20 14:30 08/15/20 14:29 05/17/20 17:13 Insulin Detemir (Levemir) 15 units Q12HR SUBQ 05/17/20 14:30 08/15/20 14:29 05/17/20 15:02 Lorazepam (Ativan 2mg/ml 1ml) 2 mg Q2H PRN IV agitation 05/15/20 19:30 05/22/20 19:29 Morphine Sulfate (Morphine Sulfate) 4 mg Q4H PRN IVP Severe Pain (Pain Scale 7-10) 05/15/20 19:30 05/22/20 19:29 Nitroglycerin (Ntg) 0.4 mg Q5M PRN SL Prn Chest Pain 05/15/20 19:30 06/14/20 19:29 Ondansetron HCl (Zofran) 4 mg Q6H PRN IVP Nausea & Vomiting 05/15/20 19:30 06/14/20 19:29 Polyethylene Glycol (Miralax) 17 gm DAILYPRN PRN ORAL Constipation 05/15/20 19:30 06/14/20 19:29 Sodium Chloride 1,000 ml @ 150 mls/hr Q6H40M IV 05/15/20 22:00 06/14/20 21:59 05/17/20 13:04 Allergies: Coded Allergies: NO KNOWN ALLERGIES (Unverified Allergy, Unknown, 08/20/15) ROS Limited/Unobtainable: No Constitutional: Reports: no symptoms HEENT: Reports: no symptoms Cardiovascular: Reports: no symptoms Respiratory: Reports: no symptoms Gastrointestinal/Abdominal: Reports: nausea, vomiting Genitourinary: Reports: no symptoms Neurologic/Psychiatric: Reports: no symptoms Subjective 29 YO F with history of diabetes admitted with nausea and vomiting. Now diabetic ketoacidosis. Cover for Int katya-Dr Brandt. Step down unit Objective Last Vital Signs Date Time Temp Pulse Resp B/P (MAP) Pulse Ox O2 Delivery O2 Flow Rate FiO2 05/17/20 12:19 99.0 100 20 103/59 (74) 100 05/17/20 12:00 Room Air Laboratory Tests Test 05/16/20 21:03 05/17/20 05:28 05/17/20 08:50 05/17/20 11:59 POC Whole Blood Glucose Pending Pending 412 MG/DL (74-106) H Sodium Level 136 MMOL/L (136-145) Potassium Level 3.7 MMOL/L (3.5-5.1) Chloride Level 104 MMOL/L (98-107) Carbon Dioxide Level 18 MMOL/L (21-32) L Anion Gap 15 mmol/L (5-15) Blood Urea Nitrogen 6 mg/dL (7-18) L Creatinine 1.0 MG/DL (0.55-1.30) Estimat Glomerular Filtration Rate > 60 mL/min (>60) Glucose Level 278 MG/DL (74-106) #H Calcium Level 8.2 MG/DL (8.5-10.1) L Phosphorus Level 1.6 MG/DL (2.5-4.9) L Magnesium Level 1.9 MG/DL (1.8-2.4) Total Bilirubin 0.3 MG/DL (0.2-1.0) Aspartate Amino Transf (AST/SGOT) 85 U/L (15-37) H Alanine Aminotransferase (ALT/SGPT) 39 U/L (12-78) Alkaline Phosphatase 71 U/L (46-116) Total Protein 6.3 G/DL (6.4-8.2) L Albumin 3.3 G/DL (3.4-5.0) L Globulin 3.0 g/dL Albumin/Globulin Ratio 1.1 (1.0-2.7) Test 05/17/20 12:56 05/17/20 17:07 POC Whole Blood Glucose 431 MG/DL (74-106) H Pending Microbiology Date/Time Source Procedure Growth Status 05/15/20 16:35 Blood Blood Culture - Preliminary NO GROWTH AFTER 24 HOURS Resulted 05/15/20 16:20 Blood Blood Culture - Preliminary NO GROWTH AFTER 24 HOURS Resulted Intake and Output 05/16/20 05/17/20 19:00 07:00 Intake Total 1530 ml 1580 ml Balance 1530 ml 1580 ml Intake Oral 480 ml 300 ml IV Total 1050 ml 1280 ml # Voids 5 2 Objective PHYSICAL EXAMINATION: GENERAL: The patient is awake and responsive, in no acute distress. HEAD AND NECK: Pupils are equal and reactive to light. Extraocular movements are intact. Neck was supple. No JVD. LUNGS: Good air entry with no wheezing or rales. HEART: S1, S2. Regular rhythm. No gallops. ABDOMEN: Soft, nondistended, and nontender. Positive bowel sounds. EXTREMITIES: No cyanosis, clubbing, or edema. NEUROLOGIC: Cranial nerves II through XII grossly normal. Motor is 5/5 in all extremities. Gait is intact. RECTAL/GENITOURINARY: Refused and deferred. PSYCHIATRIC: Mood and affect is anxious. Assessment/Plan Assessment/Plan ASSESSMENT: 1. Uncontrolled diabetes type 1 with diabetic ketoacidosis. 2. History of depression and anxiety. 3. Hyponatremia. PLAN: 1. Admit the patient to step-down. 2. Aggressive IV hydration. 3. monitor blood glucose level closely 4. Off insulin drip; continue levemir and novolog sliding scale. 5. Dr. Wolff= Pulmonary and Critical Care. 6. DVT prophylaxis=heparin subcutaneous. 7. Code status is Full Code. Alfredo Chacon MD May 17, 2020 17:52
--- NOTE | 2020-05-17 19:10 | NUR ---
NURSE NOTES: received pt from Buck MONTE., pt is awake and AO x4 at this time. pt states no pain. pt is in Sinus rhythm in the cafeteria monitor. pt is in RA no SOB noted. O2sat is at 99%. left hand 22G left FA 20G ns @ 150ml/hr running, Iv sites are all intact, clean, and patent. bed at the lowest position, alarmed, and locked. call light within reach. will continue to monitor pt with plan of care.
[2020-05-17 20:00] VITALS: BP 132/72
--- NOTE | 2020-05-17 20:40 | NUR ---
NURSE NOTES: Dr. Castro at the bedside. made aware pt's recent glucose level 194.
--- NOTE | 2020-05-17 23:06 | NUR ---
NURSE NOTES: provided new blanket, new gown. provided oral care. pt states comfortable at this time. call light within reach. will continue to monitor pt.
[2020-05-18] VITALS: BP 141/77
--- NOTE | 2020-05-18 03:15 | NUR ---
NURSE NOTES: left voice mail to Dr. Castro regarding BS 60 at 0230 AM and at 0300 BS is 88. Vitals are stable, no SOB noted. pt complains little bit of ABD pain, but pt does not want to take pain medicine at this time. no Active bleeding noted. O2sat is at 98%, BP 120/69, T 97.5, HR 88. pt states " I will let you know if it gets worse, it is just a little uncomfortable" noted, call light within reach. will continue to monitor pt closely.
--- NOTE | 2020-05-18 03:45 | NUR ---
NURSE NOTES: no new order received from Dr. Castro regarding pt's low BS. also made Dr. Castro aware regarding ABD pain. no new order received. will continue to monitor pt with plan of care and closely. call light within reach. pt is sleeping on the best comfortably.
[2020-05-18 04:00] VITALS: BP 121/66
--- NOTE | 2020-05-18 04:15 | NUR ---
NURSE NOTES: pt states no pain at this time, pt states " I feel much better." call light within reach. will continue to monitor pt closely. no SOB noted, O2sat is at 100%.
[2020-05-18 05:44] LABS: BLOOD UREA NITROGEN 5 mg/dL (7-18); CALCIUM 7.9 MG/DL (8.5-10.1); CHLORIDE 107 MMOL/L (98-107); CREATININE 0.8 MG/DL (0.55-1.30); SODIUM 140 MMOL/L (136-145)
[2020-05-18] MEDS: NovoLOG Insulin Flexpen SUBQ SCH ×7 (05:49→20:50)
[2020-05-18 05:52] LABS: CARBON DIOXIDE 21 MMOL/L (21-32); PHOSPHORUS 3.3 MG/DL (2.5-4.9)
[2020-05-18 06:15] LABS: HEMATOCRIT 30.9 % (37.0-47.0); HEMOGLOBIN 10.8 G/DL (12.0-16.0); MEAN CORPUSCULAR VOLUME 87 FL (80-99); PLATELET COUNT 111 K/UL (150-450); RED BLOOD COUNT 3.56 M/UL (4.20-5.40); RED CELL DISTRIBUTION WIDTH 11.7 % (11.6-14.8)
--- NOTE | 2020-05-18 06:29 | NUR ---
NURSE NOTES: left voice mail to Dr. Brandt regarding critical result of WBC 2.0, plt 111 potassium 3.0, mag 1.6, BUN 5. will wait for call back. pt is a sleep and able to arouse easily. call light within reach. will continue to monitor pt with plan of care.
--- NOTE | 2020-05-18 07:29 | NUR ---
NURSE HAND-OFF REPORT: Important Events on Shift:episode of low BS 60, WBC 2.0 K 3.0 mag 1.6 plt 111 Patient Status: stable Diet: CCHO Pending Orders: N/a Pending Results/Labs:N/a Pending MD notification:Dr. Brandt ( for WBC 2.0 critical), Dr. north regarding SB Latest Vital Signs: Temperature 98.6 , Pulse 78 , B/P 121 /66 , Respiratory Rate 17 , O2 SAT 100 , Room Air, O2 Flow Rate . Vital Sign Comment: stable EKG Rhythm: Sinus Rhythm Rhythm change?: N MD Notified?: - MD Response: Latest Simons Fall Score: 35 Fall Risk: Medium Risk Safety Measures: Call light Within Reach, Bed Alarm Zone 2, Side Rails Side Rails x2, Bed position Low and Locked. Fall Precautions: Yellow Socks Yellow Gown Door Sign Patient Fall Education Report given to Akosua MONTE
--- NOTE | 2020-05-18 07:33 | NUR ---
NURSE NOTES: notified Dr. Khan regarding low SB with new EKG result. will wait for call back
--- NOTE | 2020-05-18 07:57 | NUR ---
NURSE NOTES: Received report from MELL Figueroa. Patient in bed resting, no active s/s cardiac, respiratory distress noticed at this time. Patient AOx4, on room air, SR with HR 78. Patient AOx4, Patient paroxysmal SB, asymptomatic. Endorsed MD made aware. Patient CCHO diet, endorsed last BS 114. IV on left hand 22G, left FA 20G, asymptomatic, patent, intact. IVF running @ 150ml/h. Bed in lowest position, side rails upx3, call light within reach, bed alarm on, Will continue to monitor.
[2020-05-18 08:00] VITALS: BP 116/71
[2020-05-18] MEDS: Levemir Flexpen SUBQ SCH ×2 (09:00→20:50)
[2020-05-18] MEDS: Heparin 5000 units/ml inj SUBQ SCH ×2 (09:00→20:50)
--- NOTE | 2020-05-18 09:18 | NUR ---
NURSE NOTES: Dr. Brandt made aware, WBC today 2.0, occasionally SB lowest HR 45 in the morning. Per MD, consult with Dr. Shah. Order noted, entered, carried out. Will continue to monitor.
--- NOTE | 2020-05-18 09:52 | NUR ---
NURSE NOTES: Dr. Shah made aware of intermittent SB, no new order received at this time, will continue to follow up.
--- NOTE | 2020-05-18 09:57 | NUR ---
NURSE NOTES: Per Dr. Shah, order 2D echo and TSH. Order noted, entered, and carried out.
[2020-05-18 12:00] VITALS: BP 122/77
--- NOTE | 2020-05-18 13:00 | NUR ---
NURSE NOTES: Dr. Castro made aware recent BS @0900 was 87, unable to give Denis, BS now 129, per Denis DAVIS 15 unit SQ once. Order noted, entered, carried out. Will continue to monitor.
[2020-05-18] MEDS ORDERED: Levemir Flexpen SUBQ SCH (13:15)
--- NOTE | 2020-05-18 13:28 | Consultation ---
Consult Note Consult Note I am asked to evaluate the patient at the request of for fluid and electrolyte management. HISTORY OF PRESENT ILLNESS: This 29-year-old female with past medical history significant for diabetes type 1, was on an insulin pump, as well as history of depression and anxiety with prior history of suicidal ideation, who presented to the hospital complaining about elevated blood glucose level. The patient was noted that she ran out of insulin from the insulin pump and was giving herself insulin injection. She woke up in the morning and felt very weak and dizzy. She stated that she felt that she has urinary tract infection associated with nausea and nonbilious, nonbloody emesis. The patient denies any fever, chills, chest pain, shortness of breath, abdominal pain, or diarrhea. She has been waiting to get her insulin pump supply for the past two weeks and noted that blood glucose was over 500. Shortly after initial evaluation in the emergency department, the patient was admitted to the hospital with DKA. PAST MEDICAL HISTORY/PAST SURGICAL HISTORY: As above, history of insulin-dependent diabetic type 1, depression and anxiety. MEDICATIONS AT HOME: Significant for insulin, Lexapro 20 mg p.o. nightly, and gabapentin p.r.n. PHYSICAL EXAMINATION: VITAL SIGNS: On admission, temperature 98.2, pulse of 83, respirations 18, and blood pressure 104/58. GENERAL: The patient is awake and responsive, in no acute distress. HEAD AND NECK: Pupils are equal and reactive to light. Extraocular movements are intact. Neck was supple. No JVD. LUNGS: Good air entry with no wheezing or rales. HEART: S1, S2. Regular rhythm. No gallops. ABDOMEN: Soft, nondistended, and nontender. Positive bowel sounds. EXTREMITIES: No cyanosis, clubbing, or edema. NEUROLOGIC: Cranial nerves II through XII grossly normal. Motor is 5/5 in all extremities. Gait is intact. RECTAL/GENITOURINARY: Refused and deferred. PSYCHIATRIC: Mood and affect is anxious. LABORATORY DATA: On admission, WBC of 7.3, hemoglobin 11, hematocrit 35, platelets 150,000. ABG, pH of 7.29, pCO2 of 36, pO2 of 34. This was venous BG. The patient's sodium is 131, potassium 4.2, chloride 95, bicarb 17, BUN 9, creatinine 1.2. Glucose level is 557. Lactic acid 2.60. Liver functions essentially unremarkable. Beta-HCG is negative. Lipase is 83. PT of 11, INR 1.0, PTT of 25. Urine drug screen is negative. Acetone level is positive, small. Urinalysis - +4 glucose, +3 ketones, negative nitrite, negative leukocytes, 5 to 10 rbc's. . . Assessment/Plan Imp: Low potassium, low magnesium Anemia, leukopenia Hyponatremia on admission was due to hyperglycemia which is now resolved Admitting presentation uncontrolled diabetes type 1 with diabetic ketoacidosis History of depression and anxiety Discussed with RN Magnesium and potassium supplement given Continue per consultants Anemia work-up Monitor electrolytes Jeff Saavedra MD May 18, 2020 13:28
--- NOTE | 2020-05-18 15:35 | NUR ---
NURSE NOTES: Dr. Shah made aware patient asymptomatic SB, rate of 48-60s, BP 119/72, AOx4, TSH 1.461. No new order received at this time, Will continue to follow up.
[2020-05-18 16:00] VITALS: BP 119/72
--- NOTE | 2020-05-18 17:43 | Internal Med Progress Note ---
Subjective Date of Service: May 18, 2020 Physician Name Alfredo Chacon Attending Physician Derek Brandt MD Current Medications Medications (Trade) Dose Ordered Sig/Kathi Route PRN Reason Start Time Stop Time Status Last Admin Dose Admin Acetaminophen (Tylenol) 650 mg Q4H PRN ORAL Fever 05/15/20 19:30 06/14/20 19:29 05/17/20 22:09 Acetaminophen (Tylenol) 650 mg Q6H PRN ORAL Pain Scale (3-5) 05/17/20 21:15 06/16/20 21:14 Albuterol/ Ipratropium (Albuterol/ Ipratropium) 3 ml Q4H PRN HHN Shortness of Breath 05/15/20 19:30 05/20/20 19:29 Dextrose (Dextrose 50%) 25 ml Q30M PRN IV Hypoglycemia 05/17/20 14:15 08/15/20 14:14 Dextrose (Dextrose 50%) 50 ml Q30M PRN IV Hypoglycemia 05/17/20 14:15 08/15/20 14:14 Escitalopram Oxalate (Lexapro) 10 mg Q24H ORAL 05/18/20 21:00 06/17/20 20:59 Heparin Sodium (Porcine) (Heparin 5000 units/ml) 5,000 units EVERY 12 HOURS SUBQ 05/15/20 22:00 06/29/20 21:59 05/17/20 20:58 Insulin Aspart (NovoLOG) BEFORE MEALS AND HS SUBQ 05/17/20 16:30 08/15/20 16:29 05/18/20 16:35 Insulin Aspart (NovoLOG) 10 units NOVOTIAC SUBQ 05/17/20 14:30 08/15/20 14:29 05/17/20 17:13 Insulin Detemir (Levemir) 15 units Q12HR SUBQ 05/17/20 14:30 08/15/20 14:29 05/17/20 20:57 Lorazepam (Ativan 2mg/ml 1ml) 2 mg Q2H PRN IV agitation 05/15/20 19:30 05/22/20 19:29 Morphine Sulfate (Morphine Sulfate) 4 mg Q4H PRN IVP Severe Pain (Pain Scale 7-10) 05/15/20 19:30 05/22/20 19:29 Nitroglycerin (Ntg) 0.4 mg Q5M PRN SL Prn Chest Pain 05/15/20 19:30 06/14/20 19:29 Ondansetron HCl (Zofran) 4 mg Q6H PRN IVP Nausea & Vomiting 05/15/20 19:30 06/14/20 19:29 05/18/20 13:20 Polyethylene Glycol (Miralax) 17 gm DAILYPRN PRN ORAL Constipation 05/15/20 19:30 06/14/20 19:29 Potassium Chloride (K-Dur) 40 meq ONCE ORAL 05/18/20 16:45 05/18/20 18:00 05/18/20 16:05 Sodium Chloride 1,000 ml @ 150 mls/hr Q6H40M IV 05/15/20 22:00 06/14/20 21:59 05/18/20 16:05 Allergies: Coded Allergies: NO KNOWN ALLERGIES (Unverified Allergy, Unknown, 08/20/15) ROS Limited/Unobtainable: No Constitutional: Reports: no symptoms HEENT: Reports: no symptoms Cardiovascular: Reports: no symptoms Respiratory: Reports: no symptoms Gastrointestinal/Abdominal: Reports: no symptoms Genitourinary: Reports: no symptoms Neurologic/Psychiatric: Reports: no symptoms Subjective 29 YO F with history of diabetes admitted with nausea and vomiting. Now diabetic ketoacidosis. Cover for Int katya-Dr Brandt. Step down unit Objective Last Vital Signs Date Time Temp Pulse Resp B/P (MAP) Pulse Ox O2 Delivery O2 Flow Rate FiO2 05/18/20 16:00 Room Air 05/18/20 16:00 97.7 57 16 119/72 (88) 100 Laboratory Tests Test 05/17/20 19:58 05/18/20 02:27 05/18/20 03:00 05/18/20 03:10 POC Whole Blood Glucose Pending Pending 88 MG/DL (74-106) Sodium Level 140 MMOL/L (136-145) Potassium Level 3.0 MMOL/L (3.5-5.1) L Chloride Level 107 MMOL/L (98-107) Carbon Dioxide Level 21 MMOL/L (21-32) Blood Urea Nitrogen 5 mg/dL (7-18) L Creatinine 0.8 MG/DL (0.55-1.30) Estimat Glomerular Filtration Rate > 60 mL/min (>60) Glucose Level 89 MG/DL (74-106) # Hemoglobin A1c 8.2 % (4.3-6.0) H Lactic Acid Level 1.70 mmol/L (0.4-2.0) Calcium Level 7.9 MG/DL (8.5-10.1) L Phosphorus Level 3.3 MG/DL (2.5-4.9) Magnesium Level 1.6 MG/DL (1.8-2.4) L Thyroid Stimulating Hormone (TSH) 1.461 uiU/mL (0.358-3.740) Test 05/18/20 05:13 05/18/20 06:05 05/18/20 11:30 05/18/20 16:03 POC Whole Blood Glucose Pending 129 MG/DL (74-106) H 158 MG/DL (74-106) H White Blood Count 2.0 K/UL (4.8-10.8) *L Red Blood Count 3.56 M/UL (4.20-5.40) L Hemoglobin 10.8 G/DL (12.0-16.0) L Hematocrit 30.9 % (37.0-47.0) L Mean Corpuscular Volume 87 FL (80-99) Mean Corpuscular Hemoglobin 30.3 PG (27.0-31.0) Mean Corpuscular Hemoglobin Concent 34.9 G/DL (32.0-36.0) Red Cell Distribution Width 11.7 % (11.6-14.8) Platelet Count 111 K/UL (150-450) L Mean Platelet Volume 8.9 FL (6.5-10.1) Neutrophils (%) (Auto) % (45.0-75.0) Lymphocytes (%) (Auto) % (20.0-45.0) Monocytes (%) (Auto) % (1.0-10.0) Eosinophils (%) (Auto) % (0.0-3.0) Basophils (%) (Auto) % (0.0-2.0) Differential Total Cells Counted 100 Neutrophils % (Manual) 61 % (45-75) Lymphocytes % (Manual) 37 % (20-45) Monocytes % (Manual) 2 % (1-10) Eosinophils % (Manual) 0 % (0-3) Basophils % (Manual) 0 % (0-2) Band Neutrophils 0 % (0-8) Platelet Estimate Decreased L Platelet Morphology Normal Hypochromasia 1+ Microbiology Date/Time Source Procedure Growth Status 05/15/20 22:00 Rectum - Final NO CARBAPENEM-RESISTANT ENTEROBACTERI... Complete 05/15/20 22:00 Rectum VRE Culture - Final NO VANCOMYCIN RESISTANT ENTEROCOCCUS ... Complete 05/15/20 22:00 Nasal Nares MRSA Culture - Final NO METHICILLIN RESISTANT STAPH AUREUS... Complete Intake and Output 05/17/20 05/18/20 19:00 07:00 Intake Total 1690 ml 1822 ml Balance 1690 ml 1822 ml Intake Oral 790 ml 200 ml IV Total 900 ml 1622 ml # Voids 2 3 Objective PHYSICAL EXAMINATION: GENERAL: The patient is awake and responsive, in no acute distress. HEAD AND NECK: Pupils are equal and reactive to light. Extraocular movements are intact. Neck was supple. No JVD. LUNGS: Good air entry with no wheezing or rales. HEART: S1, S2. Regular rhythm. No gallops. ABDOMEN: Soft, nondistended, and nontender. Positive bowel sounds. EXTREMITIES: No cyanosis, clubbing, or edema. NEUROLOGIC: Cranial nerves II through XII grossly normal. Motor is 5/5 in all extremities. Gait is intact. RECTAL/GENITOURINARY: Refused and deferred. PSYCHIATRIC: Mood and affect is anxious. Assessment/Plan Assessment/Plan ASSESSMENT: 1. Uncontrolled diabetes type 1 with diabetic ketoacidosis. 2. History of depression and anxiety. 3. Hyponatremia. PLAN: 1. Admit the patient to step-down. 2. Aggressive IV hydration. 3. monitor blood glucose level closely 4. Off insulin drip; continue levemir and novolog sliding scale. 5. Dr. Wolff= Pulmonary and Critical Care. 6. DVT prophylaxis=heparin subcutaneous. 7. Code status is Full Code. Alfredo Chacon MD May 18, 2020 17:43
--- NOTE | 2020-05-18 17:47 | NUR ---
NURSE NOTES: Per Dr. Castro, discontinue standing order of 10 unit of Novolog. Order noted, entered, carried out.
--- NOTE | 2020-05-18 18:07 | Cardiac Electrophysiology PN ---
Subjective Subjective [id number] Objective Last 24 Hour Vital Signs Date Time Temp Pulse Resp B/P (MAP) Pulse Ox O2 Delivery O2 Flow Rate FiO2 05/18/20 16:00 Room Air 05/18/20 16:00 97.7 57 16 119/72 (88) 100 05/18/20 16:00 57 05/18/20 12:00 54 05/18/20 12:00 Room Air 05/18/20 12:00 98.6 56 16 122/77 (92) 100 05/18/20 08:00 Room Air 05/18/20 08:00 98.1 64 16 116/71 (86) 99 05/18/20 08:00 70 05/18/20 04:00 Room Air 05/18/20 04:00 98.6 78 17 121/66 (84) 100 05/18/20 03:48 69 05/18/20 00:00 91 05/18/20 00:00 Room Air 05/18/20 00:00 98.1 80 20 141/77 (98) 100 05/17/20 20:00 Room Air 05/17/20 20:00 98.1 85 20 132/72 (92) 100 05/17/20 19:28 93 Intake and Output 05/17/20 05/18/20 19:00 07:00 Intake Total 1690 ml 1822 ml Balance 1690 ml 1822 ml Intake Oral 790 ml 200 ml IV Total 900 ml 1622 ml # Voids 2 3 Laboratory Tests Test 05/17/20 19:58 05/18/20 02:27 05/18/20 03:00 05/18/20 03:10 POC Whole Blood Glucose Pending Pending 88 MG/DL (74-106) Sodium Level 140 MMOL/L (136-145) Potassium Level 3.0 MMOL/L (3.5-5.1) L Chloride Level 107 MMOL/L (98-107) Carbon Dioxide Level 21 MMOL/L (21-32) Blood Urea Nitrogen 5 mg/dL (7-18) L Creatinine 0.8 MG/DL (0.55-1.30) Estimat Glomerular Filtration Rate > 60 mL/min (>60) Glucose Level 89 MG/DL (74-106) # Hemoglobin A1c 8.2 % (4.3-6.0) H Lactic Acid Level 1.70 mmol/L (0.4-2.0) Calcium Level 7.9 MG/DL (8.5-10.1) L Phosphorus Level 3.3 MG/DL (2.5-4.9) Magnesium Level 1.6 MG/DL (1.8-2.4) L Thyroid Stimulating Hormone (TSH) 1.461 uiU/mL (0.358-3.740) Test 05/18/20 05:13 05/18/20 06:05 05/18/20 11:30 05/18/20 16:03 POC Whole Blood Glucose Pending 129 MG/DL (74-106) H 158 MG/DL (74-106) H White Blood Count 2.0 K/UL (4.8-10.8) *L Red Blood Count 3.56 M/UL (4.20-5.40) L Hemoglobin 10.8 G/DL (12.0-16.0) L Hematocrit 30.9 % (37.0-47.0) L Mean Corpuscular Volume 87 FL (80-99) Mean Corpuscular Hemoglobin 30.3 PG (27.0-31.0) Mean Corpuscular Hemoglobin Concent 34.9 G/DL (32.0-36.0) Red Cell Distribution Width 11.7 % (11.6-14.8) Platelet Count 111 K/UL (150-450) L Mean Platelet Volume 8.9 FL (6.5-10.1) Neutrophils (%) (Auto) % (45.0-75.0) Lymphocytes (%) (Auto) % (20.0-45.0) Monocytes (%) (Auto) % (1.0-10.0) Eosinophils (%) (Auto) % (0.0-3.0) Basophils (%) (Auto) % (0.0-2.0) Differential Total Cells Counted 100 Neutrophils % (Manual) 61 % (45-75) Lymphocytes % (Manual) 37 % (20-45) Monocytes % (Manual) 2 % (1-10) Eosinophils % (Manual) 0 % (0-3) Basophils % (Manual) 0 % (0-2) Band Neutrophils 0 % (0-8) Platelet Estimate Decreased L Platelet Morphology Normal Hypochromasia 1+ Microbiology Date/Time Source Procedure Growth Status 05/15/20 22:00 Rectum - Final NO CARBAPENEM-RESISTANT ENTEROBACTERI... Complete 05/15/20 22:00 Rectum VRE Culture - Final NO VANCOMYCIN RESISTANT ENTEROCOCCUS ... Complete 05/15/20 22:00 Nasal Nares MRSA Culture - Final NO METHICILLIN RESISTANT STAPH AUREUS... Complete Dino Shah MD May 18, 2020 18:07
--- NOTE | 2020-05-18 19:15 | NUR ---
NURSE NOTES: Received report from MELL South. Pt awake in bed about to sleep, afebrile and has no respiratory distress noted. On Room air saturating at 100%. Sinus Anderson 47-50 bpm on nuclear monitoring technician but asymptomatic. MD aware already per endorsement. With left hand 22g and left FA 20g IV lines patent, intact and asymptomatic. HOB elevated. Needs were attended. Shane light within reach. Bed rails are up and wheels are locked. Continue plan of care
--- NOTE | 2020-05-18 19:27 | NUR ---
NURSE HAND-OFF REPORT: Important Events on Shift: SB, Dr. Shah made aware Patient Status: stable Diet: [facility] med Pending Orders: na Pending Results/Labs:na Pending MD notification:na Latest Vital Signs: Temperature 97.7 , Pulse 57 , B/P 119 /72 , Respiratory Rate 16 , O2 SAT 100 , Room Air, O2 Flow Rate . Vital Sign Comment: stable EKG Rhythm: Sinus Bradycardia Rhythm change?: N MD Notified?: Y Dr. Shah made aware MD Response: Latest Simons Fall Score: 35 Fall Risk: Medium Risk Safety Measures: Call light Within Reach, Bed Alarm Zone 2, Side Rails Side Rails x2, Bed position Low and Locked. Fall Precautions: Yellow Socks Yellow Gown Door Sign Patient Fall Education Report given to MELL ARTIS.
[2020-05-18 20:00] VITALS: BP 115/72
--- NOTE | 2020-05-18 21:15 | Consultation ---
DATE OF CONSULTATION: 05/18/2020 CARDIOLOGY CONSULTATION CONSULTING PHYSICIAN: Dino Shah MD REFERRING PHYSICIAN: Derek Brandt MD REASON FOR CONSULTATION: Bradycardia. HISTORY OF PRESENT ILLNESS: Patient is a 29-year-old lady with history of diabetes who used to be on insulin pump as well history of depression, anxiety, as well as history of prior suicidal ideation, presents to the hospital for elevated blood glucose level. Patient ran out of her insulin for her insulin pump and was giving herself insulin injection. She woke up in the morning, felt very weak and dizzy, and she felt that she has urinary tract infection, and has nausea and vomiting. Patient denies chest pain or shortness of breath. Blood sugar was over 500. In the emergency room, patient was admitted for DKA. Also, patient noted that the heart rate drops to 70 to 40s and cardiac electrophysiology consultation was obtained for further evaluation. REVIEW OF SYSTEMS: Negative other than what was mentioned in the history of present illness. PAST MEDICAL HISTORY: As mentioned above. FAMILY HISTORY: Noncontributory. SOCIAL HISTORY: She lives at home. Does not smoke or drink alcohol. PHYSICAL EXAMINATION: VITAL SIGNS: Blood pressure is 119/72, pulse is 54, respirations 18, and she is afebrile. HEAD AND NECK: Showed no JVD. LUNGS: Clear. CARDIOVASCULAR: Shows regular S1 and S2 with no gallop. ABDOMEN: Soft. EXTREMITIES: No pitting edema. LABORATORY DATA: White count of 2, hemoglobin 10.8, hematocrit of 30, and platelet count is 111. Sodium is 140, potassium 3.0, BUN of 5, creatinine 0.8, and glucose initially was 557, currently is 158. Urine toxicology is negative. Urinalysis showed 4+ glucose, 3+ ketone, 3+ blood. ASSESSMENT AND PLAN: 1. Bradycardia. This is sinus bradycardia. We will watch the patient on telemetry. Patient is not on any sinus nancy affecting agent. 2. Lexapro. Patient denies any syncope, presyncope, or any prior cardiac history. Her echocardiogram also showed normal left ventricular systolic function and her TSH was within normal range of 1.461. 3. Diabetic ketoacidosis. Further evaluation by Dr. Castro, on insulin. 4. Leukopenia and thrombocytopenia. 5. Depression with history of suicidal ideation, on Lexapro. Thank you very much, Dr. Brandt for allowing me to participate in the care of this patient. Please do not hesitate to contact me for any questions regarding my evaluation. Dino Shah M.D. DR: MARA JOB#: [id number] CC:
[2020-05-19] VITALS: BP 121/60
--- NOTE | 2020-05-19 03:00 | NUR ---
NURSE HAND-OFF REPORT: Important Events on Shift: None Patient Status: Stable Diet: CCHO medium Pending Orders: n Pending Results/Labs:n Pending MD notification:n Latest Vital Signs: Temperature 97.7 , Pulse 65 , B/P 121 /60 , Respiratory Rate 16 , O2 SAT 100 , Room Air, O2 Flow Rate . Vital Sign Comment: n EKG Rhythm: Sinus Rhythm Rhythm change?: N MD Notified?: - MD Response: Latest Simons Fall Score: 35 Fall Risk: Medium Risk Safety Measures: Call light Within Reach, Bed Alarm Zone 2, Side Rails Side Rails x2, Bed position Low and Locked. Fall Precautions: Yellow Socks Yellow Gown Door Sign Patient Fall Education Report given to Papi Barba RN. Endorsed that patient has EKG to be done today 1012 in AM
[2020-05-19 04:00] VITALS: BP 119/71
--- NOTE | 2020-05-19 04:00 | NUR ---
NURSE NOTES: Received report from STEFF RN. Patient in bed sleeping. Respiration even and unlabored. No SOB or distress noticed. Patient A/Ox4, on room air, SB at HR 56. asymptomatic. IV on left hand 22G, left FA 20G, asymptomatic, patent, intact. NS infusing @ 150ml/hr. Bed in lowest position, side rails upx3, call light within reach, bed alarm engaged, Will continue POC.
[2020-05-19 06:02] LABS: HEMOGLOBIN 11.2 G/DL (12.0-16.0); MEAN CORPUSCULAR VOLUME 87 FL (80-99); PLATELET COUNT 126 K/UL (150-450); RED BLOOD COUNT 3.67 M/UL (4.20-5.40); RED CELL DISTRIBUTION WIDTH 11.6 % (11.6-14.8)
--- NOTE | 2020-05-19 06:19 | Cardiology Report ---
APPROVED REPORT EXAM: Two-dimensional and M-mode echocardiogram with Doppler and color Doppler. INDICATION Bradycardia M-Mode DIMENSIONS IVSd0.9 (0.7-1.1cm)Left Atrium (MM)2.2 (1.6-4.0cm) LVDd4.6 (3.5-5.6cm)Aortic Root2.9 (2.0-3.7cm) PWd0.9 (0.7-1.1cm)Aortic Cusp Exc.1.7 (1.5-2.0cm) IVSs1.4 cmEPSS0.2 (>1.0cm) LVDs3.1 (2.5-4.0cm) PWs1.2 cm <Conclusion> Normal left ventricular chamber size, systolic function and wall motion. Left ventricular ejection fraction estimated to be 60 %. All other cardiac chamber sizes are within normal limits. Focal aortic valve sclerosis with adequate cusp excursion. Moderate thickened mitral valve leaflets with normal excursion. Mitral annulus and aortic root calcification. Normal pulmonic valve structure. Normal tricuspid valve structure. IVC at normal size and with collapsing with respiration. A color flow and spectral Doppler study was performed and revealed: Trace mitral regurgitation. Mitral inflow indicate normal left ventricular diastolic function. Mild tricuspid regurgitation. Tricuspid systolic velocities suggests peak right ventricular systolic pressure of 36 mmHg, consistent with mild pulmonary hypertension. Mild pulmonic regurgitation present.
[2020-05-19] MEDS: NovoLOG Insulin Flexpen SUBQ SCH ×4 (06:30→21:28)
--- NOTE | 2020-05-19 06:57 | NUR ---
HAND-OFF: Report given to Akosua Corrales RN.
[2020-05-19 07:10] LABS: % IRON SATURATION 13 % (15-50); IRON 25 ug/dL (50-175); TOTAL IRON BINDING CAPACITY 186 ug/dL (250-450)
[2020-05-19 07:15] LABS: CHOLESTEROL 119 MG/DL (< 200); FERRITIN 151 NG/ML (8-388); GAMMA GLUTAMYL TRANSPEPTIDASE 178 U/L (5-85); HDL CHOLESTEROL 65 MG/DL (40-60); PHOSPHORUS 3.3 MG/DL (2.5-4.9); TRIGLYCERIDES 29 MG/DL (30-150)
[2020-05-19 08:00] VITALS: BP 124/70
--- NOTE | 2020-05-19 08:03 | NUR ---
NURSE NOTES: Received report from MELL Turpin. Patient in bed resting, no active s/s cardiac, respiratory distress noticed at this time. Patient SB with HR 52, MD aware of SB, EKG done SB. IV on left hand 22G, left FA 20G, asymptomatic, patent, intact, IVF NS @ 150ml/h. Patient on room air. Patient denies pain at this time. Bed in lowest position, side rails upx3, call light within reach, bed alarm on. Will continue to monitor.
[2020-05-19] MEDS: Heparin 5000 units/ml inj SUBQ SCH ×2 (09:25→20:09)
[2020-05-19] MEDS: Levemir Flexpen SUBQ SCH (09:26)
--- NOTE | 2020-05-19 10:00 | NUR ---
NURSE NOTES: Dr. Shah made aware of elevate in troponin 0.119, no new order received at this time.
--- NOTE | 2020-05-19 10:51 | NUR ---
RD ASSESSMENT & RECOMMENDATIONS SEE CARE ACTIVITY FOR COMPLETE ASSESSMENT DAILY ESTIMATED NEEDS: Needs based on DM 59kg 25-30 kcals/kg 3425-1922 total kcals 1-1.5 g protein/kg 59-89 g total protein 25-30 mL/kg 1400-3544 total fluid mLs NUTRITION DIAGNOSIS: Altered nutrition related lab values r/t DM and DKA as evidenced by BG 557 on adm, uglu 4+, w/ + acetone, A1C 8.2. CURRENT DIET: CCHO MED PO DIET RECOMMENDATIONS: Rec Diet change to CCHO LOW ADDITIONAL RECOMMENDATIONS: 1) Encourage pm snack nightly (pt w/ 2 episodes of am hypoglycemia) 2) Add 1 carb snack in b/w all meals 3) Check lytes daily, replete as needed 4) Add Glucerna 1 tetra qdaily w/ continued fair po intake
[2020-05-19 11:54] LABS: ANION GAP 5 mmol/L (5-15); BLOOD UREA NITROGEN 2 mg/dL (7-18); CALCIUM 8.1 MG/DL (8.5-10.1); CARBON DIOXIDE 29 MMOL/L (21-32); CHLORIDE 105 MMOL/L (98-107); CREATININE 0.8 MG/DL (0.55-1.30); POTASSIUM 3.8 MMOL/L (3.5-5.1); SODIUM 139 MMOL/L (136-145)
[2020-05-19 12:00] VITALS: BP 127/73
[2020-05-19 12:02] LABS: ALANINE AMINOTRANSFERASE 405 U/L (12-78); ALBUMIN/GLOBULIN RATIO 1.2 (1.0-2.7); ALKALINE PHOSPHATASE 133 U/L (46-116); ASPARTATE AMINO TRANSFERASE 685 U/L (15-37)
--- NOTE | 2020-05-19 12:15 | Consultation ---
DATE OF CONSULTATION: 05/17/2020 ADDENDUM ENDOCRINOLOGY CONSULTATION Glucose stabilized to . Blood pressure 119/72, pulse 100, respirations 20, further workup. Bradycardia work up further. In the meantime, we will resume care on 05/19/2020. Panda Castro M.D. DR: VERNON JOB#: [id number] CC:
--- NOTE | 2020-05-19 12:15 | Consultation ---
DATE OF CONSULTATION: 05/17/2020 ENDOCRINOLOGY CONSULTATION REFERRING PHYSICIAN: Derek Brandt MD HISTORY OF PRESENT ILLNESS: I was asked to see this 29-year-old female by Dr. Derek Brandt in endocrinology consultation for management of type 1 diabetes mellitus, out of control, , ran out of insulin and could not get a refill. she ran out of insulin and had to be . . REVIEW OF SYSTEMS: . PHYSICAL EXAMINATION: GENERAL: The patient is in no acute distress. HEAD AND NECK: Unremarkable. LUNGS: Clear. HEART: Regular rate. ABDOMEN: Soft . EXTREMITIES: No edema. Toes downgoing to plantar stimulation. LABORATORY DATA: Hemoglobin . AST 85. repeat of her BNP in a.m. Panda Castro M.D. DR: CHANCE JOB#: [id number] CC:
--- NOTE | 2020-05-19 12:33 | Nephrology Progress Note ---
Assessment/Plan Problem List: (1) Diabetic ketoacidosis (2) Diabetes type 1, uncontrolled (3) Hypokalemia (4) Elevated LFTs (5) Electrolyte imbalance Assessment Elevated LFTs Low potassium, low magnesium Anemia, leukopenia Hyponatremia on admission was due to hyperglycemia which is now resolved Admitting presentation uncontrolled diabetes type 1 with diabetic ketoacidosis History of depression and anxiety Plan Discussed with RN Abdominal ultrasound ordered for evaluation of elevated LFTs Magnesium and potassium supplement given Continue per consultants Anemia work-up Monitor electrolytes Subjective ROS Limited/Unobtainable: No Objective Objective Last 24 Hour Vital Signs Date Time Temp Pulse Resp B/P (MAP) Pulse Ox O2 Delivery O2 Flow Rate FiO2 05/19/20 08:00 Room Air 05/19/20 08:00 53 05/19/20 08:00 96.8 65 20 124/70 (88) 99 05/19/20 04:00 Room Air 05/19/20 04:00 56 05/19/20 04:00 97.5 56 16 119/71 (87) 100 05/19/20 03:37 57 05/19/20 00:00 Room Air 05/19/20 00:00 97.7 65 16 121/60 (80) 100 05/18/20 23:35 60 05/18/20 20:00 Room Air 05/18/20 20:00 97.3 64 16 115/72 (86) 100 05/18/20 19:36 56 05/18/20 16:00 Room Air 05/18/20 16:00 97.7 57 16 119/72 (88) 100 05/18/20 16:00 57 Intake and Output 05/18/20 05/19/20 19:00 07:00 Intake Total 1750 ml 1748 ml Balance 1750 ml 1748 ml Intake Oral 250 ml IV Total 1500 ml 1748 ml # Voids 2 3 Laboratory Tests 05/18/20 16:03: POC Whole Blood Glucose 158H 05/18/20 20:47: POC Whole Blood Glucose 91 05/19/20 05:03: White Blood Count 3.0L, Red Blood Count 3.67L, Hemoglobin 11.2L, Hematocrit 32.0L, Mean Corpu Current Medications Medications (Trade) Dose Ordered Sig/Kathi Route PRN Reason Start Time Stop Time Status Last Admin Dose Admin Acetaminophen (Tylenol) 650 mg Q4H PRN ORAL Fever 05/15/20 19:30 06/14/20 19:29 05/17/20 22:09 Acetaminophen (Tylenol) 650 mg Q6H PRN ORAL Pain Scale (3-5) 05/17/20 21:15 06/16/20 21:14 Albuterol/ Ipratropium (Albuterol/ Ipratropium) 3 ml Q4H PRN HHN Shortness of Breath 05/15/20 19:30 05/20/20 19:29 Dextrose (Dextrose 50%) 25 ml Q30M PRN IV Hypoglycemia 05/17/20 14:15 08/15/20 14:14 Dextrose (Dextrose 50%) 50 ml Q30M PRN IV Hypoglycemia 05/17/20 14:15 08/15/20 14:14 Escitalopram Oxalate (Lexapro) 10 mg Q24H ORAL 05/18/20 21:00 06/17/20 20:59 05/18/20 20:49 Folic Acid (Folate) 3 mg DAILY ORAL 05/19/20 09:45 06/18/20 09:44 05/19/20 10:36 Heparin Sodium (Porcine) (Heparin 5000 units/ml) 5,000 units EVERY 12 HOURS SUBQ 05/15/20 22:00 06/29/20 21:59 05/19/20 09:25 Insulin Aspart (NovoLOG) BEFORE MEALS AND HS SUBQ 05/17/20 16:30 08/15/20 16:29 05/19/20 11:48 Insulin Detemir (Levemir) 15 units Q12HR SUBQ 05/17/20 14:30 08/15/20 14:29 05/19/20 09:26 Lorazepam (Ativan 2mg/ml 1ml) 2 mg Q2H PRN IV agitation 05/15/20 19:30 05/22/20 19:29 Morphine Sulfate (Morphine Sulfate) 4 mg Q4H PRN IVP Severe Pain (Pain Scale 7-10) 05/15/20 19:30 05/22/20 19:29 Nitroglycerin (Ntg) 0.4 mg Q5M PRN SL Prn Chest Pain 05/15/20 19:30 06/14/20 19:29 Ondansetron HCl (Zofran) 4 mg Q6H PRN IVP Nausea & Vomiting 05/15/20 19:30 06/14/20 19:29 05/18/20 13:20 Polyethylene Glycol (Miralax) 17 gm DAILYPRN PRN ORAL Constipation 05/15/20 19:30 06/14/20 19:29 Potassium Chloride (K-Dur) 40 meq TWICE A DAY ORAL 05/19/20 09:45 08/17/20 09:44 05/19/20 10:36 scular Volume 87, Mean Corpuscular Hemoglobin 30.4, Mean Corpuscular Hemoglobin Concent 34.9, Red Cell Distribution Width 11.6, Platelet Count 126L, Mean Platelet Volume 8.4, Neutrophils (%) (Auto) , Lymphocytes (%) (Auto) , Monocytes (%) (Auto) , Eosinophils (%) (Auto) , Basophils (%) (Auto) , Differential Total Cells Counted 100, Neutrophils % (Manual) 67, Lymphocytes % (Manual) 30, Monocytes % (Manual) 2, Eosinophils % (Manual) 1, Basophils % (Manual) 0, Band Neutrophils 0, Platelet Estimate DecreasedL, Platelet Morphology Normal, Red Blood Cell Morphology Normal, Hemoglobin A1c 8.2H, Uric Acid 1.3L, Phosphorus Level 3.3, Magnesium Level 2.1, Iron Level 25L, Total Iron Binding Capacity 186L , Percent Iron Saturation 13L, Unsaturated Iron Binding 161, Ferritin 151, Gamma Glutamyl Transpeptidase 178H, Troponin I 0.119H, C-Reactive Protein, Quantitative 2.0H, Pro-B-Type Natriuretic Peptide 746H, Triglycerides Level 29L, Cholesterol Level 119, LDL Cholesterol 32, HDL Cholesterol 65H, Cholesterol/HDL Ratio 1.8L, Vitamin B12 Level 1869H, Folate 6.4L, Thyroid Stimulating Hormone (TSH) 0.890, Free Thyroxine 1.34 05/19/20 06:25: POC Whole Blood Glucose [Pending] 05/19/20 09:24: POC Whole Blood Glucose 190H 05/19/20 11:30: POC Whole Blood Glucose 176H, Sodium Level 139, Potassium Level 3.8, Chloride Level 105, Carbon Dioxide Level 29, Anion Gap 5, Blood Urea Nitrogen 2L, Creatinine 0.8, Estimat Glomerular Filtration Rate > 60, Glucose Level 207#H, Calcium Level 8.1L, Total Bilirubin 1.0, Aspartate Amino Transf (AST/SGOT) 685H, Alanine Aminotransferase (ALT/SGPT) 405H, Alkaline Phosphatase 133H, Total Protein 5.6L, Albumin 3.0L, Globulin 2.6, Albumin/Globulin Ratio 1.2 Height (Feet): 5 Height (Inches): 4.00 Weight (Pounds): 121 General Appearance: no apparent distress Cardiovascular: normal rate Respiratory/Chest: decreased breath sounds Abdomen: soft Jeff Saavedra MD May 19, 2020 12:33
--- NOTE | 2020-05-19 13:36 | Cardiac Electrophysiology PN ---
Assessment/Plan Assessment/Plan 1. Sinus Bradycardia. Patient is not on any sinus nnacy affecting agent. Patient denies any syncope, presyncope, or any prior cardiac history. Her echocardiogram also showed normal left ventricular systolic function and her TSH was within normal range of 1.461. 3. Diabetic ketoacidosis. Further evaluation by Dr. Castro, on insulin. 4. Leukopenia and thrombocytopenia. 5. Depression with history of suicidal ideation, on Lexapro. Subjective Subjective Alert in NAD. Had sinus jeramy 50 on 12 lead ECG Objective Last 24 Hour Vital Signs Date Time Temp Pulse Resp B/P (MAP) Pulse Ox O2 Delivery O2 Flow Rate FiO2 05/19/20 08:00 Room Air 05/19/20 08:00 53 05/19/20 08:00 96.8 65 20 124/70 (88) 99 05/19/20 04:00 Room Air 05/19/20 04:00 56 05/19/20 04:00 97.5 56 16 119/71 (87) 100 05/19/20 03:37 57 05/19/20 00:00 Room Air 05/19/20 00:00 97.7 65 16 121/60 (80) 100 05/18/20 23:35 60 05/18/20 20:00 Room Air 05/18/20 20:00 97.3 64 16 115/72 (86) 100 05/18/20 19:36 56 05/18/20 16:00 Room Air 05/18/20 16:00 97.7 57 16 119/72 (88) 100 05/18/20 16:00 57 Intake and Output 05/18/20 05/19/20 19:00 07:00 Intake Total 1750 ml 1748 ml Balance 1750 ml 1748 ml Intake Oral 250 ml IV Total 1500 ml 1748 ml # Voids 2 3 Laboratory Tests Test 05/18/20 16:03 05/18/20 20:47 05/19/20 05:03 05/19/20 06:25 POC Whole Blood Glucose 158 MG/DL (74-106) H 91 MG/DL (74-106) Pending White Blood Count 3.0 K/UL (4.8-10.8) L Red Blood Count 3.67 M/UL (4.20-5.40) L Hemoglobin 11.2 G/DL (12.0-16.0) L Hematocrit 32.0 % (37.0-47.0) L Mean Corpuscular Volume 87 FL (80-99) Mean Corpuscular Hemoglobin 30.4 PG (27.0-31.0) Mean Corpuscular Hemoglobin Concent 34.9 G/DL (32.0-36.0) Red Cell Distribution Width 11.6 % (11.6-14.8) Platelet Count 126 K/UL (150-450) L Mean Platelet Volume 8.4 FL (6.5-10.1) Neutrophils (%) (Auto) % (45.0-75.0) Lymphocytes (%) (Auto) % (20.0-45.0) Monocytes (%) (Auto) % (1.0-10.0) Eosinophils (%) (Auto) % (0.0-3.0) Basophils (%) (Auto) % (0.0-2.0) Differential Total Cells Counted 100 Neutrophils % (Manual) 67 % (45-75) Lymphocytes % (Manual) 30 % (20-45) Monocytes % (Manual) 2 % (1-10) Eosinophils % (Manual) 1 % (0-3) Basophils % (Manual) 0 % (0-2) Band Neutrophils 0 % (0-8) Platelet Estimate Decreased L Platelet Morphology Normal Red Blood Cell Morphology Normal Hemoglobin A1c 8.2 % (4.3-6.0) H Uric Acid 1.3 MG/DL (2.6-7.2) L Phosphorus Level 3.3 MG/DL (2.5-4.9) Magnesium Level 2.1 MG/DL (1.8-2.4) Iron Level 25 ug/dL (50-175) L Total Iron Binding Capacity 186 ug/dL (250-450) L Percent Iron Saturation 13 % (15-50) L Unsaturated Iron Binding 161 ug/dL (112-346) Ferritin 151 NG/ML (8-388) Gamma Glutamyl Transpeptidase 178 U/L (5-85) H Troponin I 0.119 ng/mL (0.000-0.056) C-Reactive Protein, Quantitative 2.0 mg/dL (0.00-0.90) H Pro-B-Type Natriuretic Peptide 746 pg/mL (0-125) H Triglycerides Level 29 MG/DL (30-150) L Cholesterol Level 119 MG/DL (< 200) LDL Cholesterol 32 mg/dL (<100) HDL Cholesterol 65 MG/DL (40-60) H Cholesterol/HDL Ratio 1.8 (3.3-4.4) L Vitamin B12 Level 1869 PG/ML (193-986) H Folate 6.4 NG/ML (8.6-58.9) L Thyroid Stimulating Hormone (TSH) 0.890 uiU/mL (0.358-3.740) Free Thyroxine 1.34 NG/DL (0.76-1.46) Test 05/19/20 09:24 05/19/20 11:30 POC Whole Blood Glucose 190 MG/DL (74-106) H 176 MG/DL (74-106) H Sodium Level 139 MMOL/L (136-145) Potassium Level 3.8 MMOL/L (3.5-5.1) Chloride Level 105 MMOL/L (98-107) Carbon Dioxide Level 29 MMOL/L (21-32) Anion Gap 5 mmol/L (5-15) Blood Urea Nitrogen 2 mg/dL (7-18) L Creatinine 0.8 MG/DL (0.55-1.30) Estimat Glomerular Filtration Rate > 60 mL/min (>60) Glucose Level 207 MG/DL (74-106) #H Calcium Level 8.1 MG/DL (8.5-10.1) L Total Bilirubin 1.0 MG/DL (0.2-1.0) Aspartate Amino Transf (AST/SGOT) 685 U/L (15-37) H Alanine Aminotransferase (ALT/SGPT) 405 U/L (12-78) H Alkaline Phosphatase 133 U/L (46-116) H Total Protein 5.6 G/DL (6.4-8.2) L Albumin 3.0 G/DL (3.4-5.0) L Globulin 2.6 g/dL Albumin/Globulin Ratio 1.2 (1.0-2.7) Objective HEAD AND NECK: Showed no JVD. LUNGS: Clear. CARDIOVASCULAR: Shows regular jeramy S1 and S2 with no gallop. ABDOMEN: Soft. EXTREMITIES: No pitting edema. Dino Shah MD May 19, 2020 13:36
--- NOTE | 2020-05-19 13:57 | General Progress Note ---
Subjective ROS Limited/Unobtainable: Yes Allergies: Coded Allergies: NO KNOWN ALLERGIES (Unverified Allergy, Unknown, 08/20/15) Objective Last 24 Hour Vital Signs Date Time Temp Pulse Resp B/P (MAP) Pulse Ox O2 Delivery O2 Flow Rate FiO2 05/19/20 12:00 98.2 51 21 127/73 (91) 99 05/19/20 08:00 Room Air 05/19/20 08:00 53 05/19/20 08:00 96.8 65 20 124/70 (88) 99 05/19/20 04:00 Room Air 05/19/20 04:00 56 05/19/20 04:00 97.5 56 16 119/71 (87) 100 05/19/20 03:37 57 05/19/20 00:00 Room Air 05/19/20 00:00 97.7 65 16 121/60 (80) 100 05/18/20 23:35 60 05/18/20 20:00 Room Air 05/18/20 20:00 97.3 64 16 115/72 (86) 100 05/18/20 19:36 56 05/18/20 16:00 Room Air 05/18/20 16:00 97.7 57 16 119/72 (88) 100 05/18/20 16:00 57 Intake and Output 05/18/20 05/19/20 19:00 07:00 Intake Total 1750 ml 1748 ml Balance 1750 ml 1748 ml Intake Oral 250 ml IV Total 1500 ml 1748 ml # Voids 2 3 Laboratory Tests 05/18/20 16:03: POC Whole Blood Glucose 158H 05/18/20 20:47: POC Whole Blood Glucose 91 05/19/20 05:03: White Blood Count 3.0L, Red Blood Count 3.67L, Hemoglobin 11.2L, Hematocrit 32.0L, Mean Corpuscular Volume 87, Mean Corpuscular Hemoglobin 30.4, Mean Corpuscular Hemoglobin Concent 34.9, Red Cell Distribution Width 11.6, Platelet Count 126L, Mean Platelet Volume 8.4, Neutrophils (%) (Auto) , Lymphocytes (%) (Auto) , Monocytes (%) (Auto) , Eosinophils (%) (Auto) , Basophils (%) (Auto) , Differential Total Cells Counted 100, Neutrophils % (Manual) 67, Lymphocytes % (Manual) 30, Monocytes % (Manual) 2, Eosinophils % (Manual) 1, Basophils % (Manual) 0, Band Neutrophils 0, Platelet Estimate DecreasedL, Platelet Morphology Normal, Red Blood Cell Morphology Normal, Hemoglobin A1c 8.2H, Uric Acid 1.3L, Phosphorus Level 3.3, Magnesium Level 2.1, Iron Level 25L, Total Iron Binding Capacity 186L, Percent Iron Saturation 13L, Unsaturated Iron Binding 161, Ferritin 151, Gamma Glutamyl Transpeptidase 178H, Troponin I 0.119H, C- Reactive Protein, Quantitative 2.0H, Pro-B-Type Natriuretic Peptide 746H, Triglycerides Level 29L, Cholesterol Level 119, LDL Cholesterol 32, HDL Cholesterol 65H, Cholesterol/HDL Ratio 1.8L, Vitamin B12 Level 1869H, Folate 6.4L, Thyroid Stimulating Hormone (TSH) 0.890, Free Thyroxine 1.34 05/19/20 06:25: POC Whole Blood Glucose [Pending] 05/19/20 09:24: POC Whole Blood Glucose 190H 05/19/20 11:30: POC Whole Blood Glucose 176H, Sodium Level 139, Potassium Level 3.8, Chloride Level 105, Carbon Dioxide Level 29, Anion Gap 5, Blood Urea Nitrogen 2L, Creatinine 0.8, Estimat Glomerular Filtration Rate > 60, Glucose Level 207#H, Calcium Level 8.1L, Total Bilirubin 1.0, Aspartate Amino Transf (AST/SGOT) 685H, Alanine Aminotransferase (ALT/SGPT) 405H, Alkaline Phosphatase 133H, Total Protein 5.6L, Albumin 3.0L, Globulin 2.6, Albumin/Globulin Ratio 1.2 Height (Feet): 5 Height (Inches): 4.00 Weight (Pounds): 121 General Appearance: alert EENT: normal ENT inspection Neck: supple Cardiovascular: normal rate Respiratory/Chest: decreased breath sounds Abdomen: normal bowel sounds, non tender, soft Extremities: non-tender Assessment/Plan Problem List: (1) Elevated LFTs ICD Codes: R79.89 - Other specified abnormal findings of blood chemistry SNOMED: 432126678, 307060880 (2) Anemia ICD Codes: D64.9 - Anemia, unspecified SNOMED: 432802120 (3) Elevated LFTs ICD Codes: R79.89 - Other specified abnormal findings of blood chemistry SNOMED: 891012943, 028259933 (4) Diabetic ketoacidosis ICD Codes: E13.10 - Other specified diabetes mellitus with ketoacidosis without coma SNOMED: 15568709, 252542975 (5) Suicidal ideation ICD Codes: R45.851 - Suicidal ideations SNOMED: 0912029 (6) Depression ICD Codes: F32.9 - Major depressive disorder, single episode, unspecified SNOMED: 22448545 Assessment/Plan: ? shock liver . patient was hypotensive on 05/16 repeat LFTSs fu abd us hepatitis panel anmeia work up Cristian Reyes MD May 19, 2020 13:57
--- NOTE | 2020-05-19 14:00 | NUR ---
NURSE NOTES: Dr. Shah made aware elevated BNP, per MD discontinue IVF, order noted, entered, carried out.
--- NOTE | 2020-05-19 14:28 | NUR ---
NURSE NOTES: Dr. Brandt made aware sudden spike up of AST ALT level. No new order received at this time. Will continue to follow up.
--- NOTE | 2020-05-19 15:00 | NUR ---
NURSE NOTES: Dr. Reyes aware of level of liver panel, ordered accordingly.
--- NOTE | 2020-05-19 15:10 | NUR ---
CASE MANAGEMENT: REVIEW SI: DKA . ELEVATED LFT T 97.5 HR 51 RR 21 BP 127/73 SAT 99% ROOM AIR WBC 3.0 GLUCOSE 207 AST 685 ALT 405 ALK PHOS 133 US ABD PENDING IS: NOVOLOG SUBQ AC+HR LEVEMIR SUBQ Q12HR HEPARIN SUBQ Q12HR STEP DOWN UNIT STATUS DCP: PATIENT IS FROM HOME
[2020-05-19 16:00] VITALS: BP 119/80
--- NOTE | 2020-05-19 17:32 | General Progress Note ---
Subjective Allergies: Coded Allergies: NO KNOWN ALLERGIES (Unverified Allergy, Unknown, 08/20/15) All Systems: reviewed and negative except above Subjective events noted interval notes reviewed patient is known to me from past on [employer] pump - ran out of supplies BR 17.5 / day ICR 1:15 Item Value Date Time Bedside Blood Glucose 154 mg/dl H 05/19/20 1630 Bedside Blood Glucose 176 mg/dl H 05/19/20 1148 Bedside Blood Glucose 190 mg/dl H 05/19/20 0926 Bedside Blood Glucose 61 mg/dl L 05/19/20 0630 Bedside Blood Glucose 91 mg/dl 05/18/20 2100 Bedside Blood Glucose 158 mg/dl H 05/18/20 1636 Bedside Blood Glucose 129 mg/dl H 05/18/20 1338 Objective Last 24 Hour Vital Signs Date Time Temp Pulse Resp B/P (MAP) Pulse Ox O2 Delivery O2 Flow Rate FiO2 05/19/20 16:00 Room Air 05/19/20 12:00 98.2 51 21 127/73 (91) 99 05/19/20 12:00 Room Air 05/19/20 12:00 52 05/19/20 08:00 Room Air 05/19/20 08:00 53 05/19/20 08:00 96.8 65 20 124/70 (88) 99 05/19/20 04:00 Room Air 05/19/20 04:00 56 05/19/20 04:00 97.5 56 16 119/71 (87) 100 05/19/20 03:37 57 05/19/20 00:00 Room Air 05/19/20 00:00 97.7 65 16 121/60 (80) 100 05/18/20 23:35 60 05/18/20 20:00 Room Air 05/18/20 20:00 97.3 64 16 115/72 (86) 100 05/18/20 19:36 56 Intake and Output 05/18/20 05/19/20 19:00 07:00 Intake Total 1750 ml 1898 ml Balance 1750 ml 1898 ml Intake Oral 250 ml IV Total 1500 ml 1898 ml # Voids 2 3 Laboratory Tests 05/18/20 20:47: POC Whole Blood Glucose 91 05/19/20 05:03: White Blood Count 3.0L, Red Blood Count 3.67L, Hemoglobin 11.2L, Hematocrit 32.0L, Mean Corpuscular Volume 87, Mean Corpuscular Hemoglobin 30.4, Mean Corpuscular Hemoglobin Concent 34.9, Red Cell Distribution Width 11.6, Platelet Count 126L, Mean Platelet Volume 8.4, Neutrophils (%) (Auto) , Lymphocytes (%) (Auto) , Monocytes (%) (Auto) , Eosinophils (%) (Auto) , Basophils (%) (Auto) , Differential Total Cells Counted 100, Neutrophils % (Manual) 67, Lymphocytes % (Manual) 30, Monocytes % (Manual) 2, Eosinophils % (Manual) 1, Basophils % (Manual) 0, Band Neutrophils 0, Platelet Estimate DecreasedL, Platelet Morphology Normal, Red Blood Cell Morphology Normal, Hemoglobin A1c 8.2H, Uric Acid 1.3L, Phosphorus Level 3.3, Magnesium Level 2.1, Iron Level 25L, Total Iron Binding Capacity 186L, Percent Iron Saturation 13L, Unsaturated Iron Binding 161, Ferritin 151, Gamma Glutamyl Transpeptidase 178H, Troponin I 0.119H, C- Reactive Protein, Quantitative 2.0H, Pro-B-Type Natriuretic Peptide 746H, Triglycerides Level 29L, Cholesterol Level 119, LDL Cholesterol 32, HDL Cholesterol 65H, Cholesterol/HDL Ratio 1.8L, Vitamin B12 Level 1869H, Folate 6.4L, Thyroid Stimulating Hormone (TSH) 0.890, Free Thyroxine 1.34 05/19/20 06:25: POC Whole Blood Glucose [Pending] 05/19/20 09:24: POC Whole Blood Glucose 190H 05/19/20 11:30: Sodium Level 139, Potassium Level 3.8, Chloride Level 105, Carbon Dioxide Level 29, Anion Gap 5, Blood Urea Nitrogen 2L, Creatinine 0.8, Estimat Glomerular Filtration Rate > 60, Glucose Level 207#H, POC Whole Blood Glucose 176H, Calcium Level 8.1L, Total Bilirubin 1.0, Aspartate Amino Transf (AST/SGOT) 685H, Alanine Aminotransferase (ALT/SGPT) 405H, Alkaline Phosphatase 133H, Total Protein 5.6L, Albumin 3.0L, Globulin 2.6, Albumin/Globulin Ratio 1.2 05/19/20 15:48: POC Whole Blood Glucose [Pending] Height (Feet): 5 Height (Inches): 4.00 Weight (Pounds): 121 General Appearance: no apparent distress Neck: normal alignment Respiratory/Chest: lungs clear Abdomen: normal bowel sounds Objective Current Medications Medications (Trade) Dose Ordered Sig/Kathi Route PRN Reason Start Time Stop Time Status Last Admin Dose Admin Acetaminophen (Tylenol) 650 mg Q4H PRN ORAL Fever 05/15/20 19:30 06/14/20 19:29 05/17/20 22:09 Acetaminophen (Tylenol) 650 mg Q6H PRN ORAL Pain Scale (3-5) 05/17/20 21:15 06/16/20 21:14 Albuterol/ Ipratropium (Albuterol/ Ipratropium) 3 ml Q4H PRN HHN Shortness of Breath 05/15/20 19:30 05/20/20 19:29 Dextrose (Dextrose 50%) 25 ml Q30M PRN IV Hypoglycemia 05/17/20 14:15 08/15/20 14:14 Dextrose (Dextrose 50%) 50 ml Q30M PRN IV Hypoglycemia 05/17/20 14:15 08/15/20 14:14 Escitalopram Oxalate (Lexapro) 10 mg Q24H ORAL 05/18/20 21:00 06/17/20 20:59 05/18/20 20:49 Folic Acid (Folate) 3 mg DAILY ORAL 05/19/20 09:45 06/18/20 09:44 05/19/20 10:36 Heparin Sodium (Porcine) (Heparin 5000 units/ml) 5,000 units EVERY 12 HOURS SUBQ 05/15/20 22:00 06/29/20 21:59 05/19/20 09:25 Insulin Aspart (NovoLOG) BEFORE MEALS AND HS SUBQ 05/17/20 16:30 08/15/20 16:29 05/19/20 11:48 Insulin Detemir (Levemir) 15 units Q12HR SUBQ 05/17/20 14:30 08/15/20 14:29 05/19/20 09:26 Lorazepam (Ativan 2mg/ml 1ml) 2 mg Q2H PRN IV agitation 05/15/20 19:30 05/22/20 19:29 Morphine Sulfate (Morphine Sulfate) 4 mg Q4H PRN IVP Severe Pain (Pain Scale 7-10) 05/15/20 19:30 05/22/20 19:29 Nitroglycerin (Ntg) 0.4 mg Q5M PRN SL Prn Chest Pain 05/15/20 19:30 06/14/20 19:29 Ondansetron HCl (Zofran) 4 mg Q6H PRN IVP Nausea & Vomiting 05/15/20 19:30 06/14/20 19:29 05/18/20 13:20 Polyethylene Glycol (Miralax) 17 gm DAILYPRN PRN ORAL Constipation 05/15/20 19:30 06/14/20 19:29 Potassium Chloride (K-Dur) 40 meq TWICE A DAY ORAL 05/19/20 09:45 08/17/20 09:44 05/19/20 10:36 Assessment/Plan Problem List: (1) Diabetes type 1, uncontrolled ICD Codes: E10.65 - Type 1 diabetes mellitus with hyperglycemia SNOMED: 973396753, 622705234 (2) Diabetic ketoacidosis ICD Codes: E13.10 - Other specified diabetes mellitus with ketoacidosis without coma SNOMED: 84341514, 508621103 (3) Elevated LFTs ICD Codes: R79.89 - Other specified abnormal findings of blood chemistry SNOMED: 862672457, 877087267 Assessment/Plan: reduce Levemir to 15 units daily add Novolog 4 units ac tid Novolog sliding scale ac / hs hypoglycemia protocol in order Rx provided for Levemir and Novolog pen in case of pump issues in the future Jonatan Burns MD May 19, 2020 17:32
--- NOTE | 2020-05-19 19:29 | NUR ---
NURSE HAND-OFF REPORT: Important Events on Shift: na Patient Status: SB, asymptomatic Diet: CCHO med, NPO at midnight Pending Orders: na Pending Results/Labs:na Pending MD notification:na Latest Vital Signs: Temperature 98.2 , Pulse 61 , B/P 119 /80 , Respiratory Rate 20 , O2 SAT 99 , Room Air, O2 Flow Rate . Vital Sign Comment: stable, SB EKG Rhythm: Sinus Rhythm Rhythm change?: N MD Notified?: - MD Response: Latest Simons Fall Score: 35 Fall Risk: Medium Risk Safety Measures: Call light Within Reach, Bed Alarm Zone 2, Side Rails Side Rails x2, Bed position Low and Locked. Fall Precautions: Yellow Socks Yellow Gown Door Sign Patient Fall Education Report given to MELL Torres.
--- NOTE | 2020-05-19 19:30 | NUR ---
NURSE NOTES: Report received from MELL South. Pt A/Abbi LADD. Able to make needs known. Observed to be on room air with no respiratory or cardiac distress noted. Left IV site patent and intact saline locked. 0/10 pain per patient. Made aware of plan of care to keep NPO for Ab US in AM. Pt in stable condition. Call light within reach. Will continue to monitor.
[2020-05-19 20:00] VITALS: BP 115/72
--- NOTE | 2020-05-19 20:00 | NUR ---
NURSE NOTES: Dad at bedside. Made aware of plan of care. Will monitor.
--- NOTE | 2020-05-19 20:19 | Internal Med Progress Note ---
Subjective Date of Service: May 19, 2020 Physician Name Alfredo Chacon Attending Physician Derek Brandt MD Current Medications Medications (Trade) Dose Ordered Sig/Kathi Route PRN Reason Start Time Stop Time Status Last Admin Dose Admin Acetaminophen (Tylenol) 650 mg Q4H PRN ORAL Fever 05/15/20 19:30 06/14/20 19:29 05/17/20 22:09 Acetaminophen (Tylenol) 650 mg Q6H PRN ORAL Pain Scale (3-5) 05/17/20 21:15 06/16/20 21:14 Albuterol/ Ipratropium (Albuterol/ Ipratropium) 3 ml Q4H PRN HHN Shortness of Breath 05/15/20 19:30 05/20/20 19:29 Dextrose (Dextrose 50%) 25 ml Q30M PRN IV Hypoglycemia 05/17/20 14:15 08/15/20 14:14 Dextrose (Dextrose 50%) 50 ml Q30M PRN IV Hypoglycemia 05/17/20 14:15 08/15/20 14:14 Escitalopram Oxalate (Lexapro) 10 mg Q24H ORAL 05/18/20 21:00 06/17/20 20:59 05/18/20 20:49 Folic Acid (Folate) 3 mg DAILY ORAL 05/19/20 09:45 06/18/20 09:44 05/19/20 10:36 Heparin Sodium (Porcine) (Heparin 5000 units/ml) 5,000 units EVERY 12 HOURS SUBQ 05/15/20 22:00 06/29/20 21:59 05/19/20 09:25 Insulin Aspart (NovoLOG) BEFORE MEALS AND HS SUBQ 05/17/20 16:30 08/15/20 16:29 05/19/20 17:29 Insulin Aspart (NovoLOG) 4 units NOVOTIAC SUBQ 05/20/20 06:30 08/18/20 06:29 Insulin Detemir (Levemir) 15 units DAILY SUBQ 05/20/20 09:00 08/15/20 14:29 Lorazepam (Ativan 2mg/ml 1ml) 2 mg Q2H PRN IV agitation 05/15/20 19:30 05/22/20 19:29 Morphine Sulfate (Morphine Sulfate) 4 mg Q4H PRN IVP Severe Pain (Pain Scale 7-10) 05/15/20 19:30 05/22/20 19:29 Nitroglycerin (Ntg) 0.4 mg Q5M PRN SL Prn Chest Pain 05/15/20 19:30 06/14/20 19:29 Ondansetron HCl (Zofran) 4 mg Q6H PRN IVP Nausea & Vomiting 05/15/20 19:30 06/14/20 19:29 05/18/20 13:20 Polyethylene Glycol (Miralax) 17 gm DAILYPRN PRN ORAL Constipation 05/15/20 19:30 06/14/20 19:29 Potassium Chloride (K-Dur) 40 meq TWICE A DAY ORAL 05/19/20 09:45 08/17/20 09:44 05/19/20 17:35 Allergies: Coded Allergies: NO KNOWN ALLERGIES (Unverified Allergy, Unknown, 08/20/15) ROS Limited/Unobtainable: No Constitutional: Reports: no symptoms HEENT: Reports: no symptoms Cardiovascular: Reports: no symptoms Respiratory: Reports: no symptoms Gastrointestinal/Abdominal: Reports: no symptoms Genitourinary: Reports: no symptoms Neurologic/Psychiatric: Reports: no symptoms Subjective 29 YO F with history of diabetes admitted with nausea and vomiting. Now diabetic ketoacidosis. Cover for Int med-Dr Brandt. Step down unit Objective Last Vital Signs Date Time Temp Pulse Resp B/P (MAP) Pulse Ox O2 Delivery O2 Flow Rate FiO2 05/19/20 16:00 61 05/19/20 16:00 Room Air 05/19/20 16:00 98.2 20 119/80 (93) 99 Laboratory Tests Test 05/18/20 20:47 05/19/20 05:03 05/19/20 06:25 05/19/20 09:24 POC Whole Blood Glucose 91 MG/DL (74-106) Pending 190 MG/DL (74-106) H White Blood Count 3.0 K/UL (4.8-10.8) L Red Blood Count 3.67 M/UL (4.20-5.40) L Hemoglobin 11.2 G/DL (12.0-16.0) L Hematocrit 32.0 % (37.0-47.0) L Mean Corpuscular Volume 87 FL (80-99) Mean Corpuscular Hemoglobin 30.4 PG (27.0-31.0) Mean Corpuscular Hemoglobin Concent 34.9 G/DL (32.0-36.0) Red Cell Distribution Width 11.6 % (11.6-14.8) Platelet Count 126 K/UL (150-450) L Mean Platelet Volume 8.4 FL (6.5-10.1) Neutrophils (%) (Auto) % (45.0-75.0) Lymphocytes (%) (Auto) % (20.0-45.0) Monocytes (%) (Auto) % (1.0-10.0) Eosinophils (%) (Auto) % (0.0-3.0) Basophils (%) (Auto) % (0.0-2.0) Differential Total Cells Counted 100 Neutrophils % (Manual) 67 % (45-75) Lymphocytes % (Manual) 30 % (20-45) Monocytes % (Manual) 2 % (1-10) Eosinophils % (Manual) 1 % (0-3) Basophils % (Manual) 0 % (0-2) Band Neutrophils 0 % (0-8) Platelet Estimate Decreased L Platelet Morphology Normal Red Blood Cell Morphology Normal Hemoglobin A1c 8.2 % (4.3-6.0) H Uric Acid 1.3 MG/DL (2.6-7.2) L Phosphorus Level 3.3 MG/DL (2.5-4.9) Magnesium Level 2.1 MG/DL (1.8-2.4) Iron Level 25 ug/dL (50-175) L Total Iron Binding Capacity 186 ug/dL (250-450) L Percent Iron Saturation 13 % (15-50) L Unsaturated Iron Binding 161 ug/dL (112-346) Ferritin 151 NG/ML (8-388) Gamma Glutamyl Transpeptidase 178 U/L (5-85) H Troponin I 0.119 ng/mL (0.000-0.056) C-Reactive Protein, Quantitative 2.0 mg/dL (0.00-0.90) H Pro-B-Type Natriuretic Peptide 746 pg/mL (0-125) H Triglycerides Level 29 MG/DL (30-150) L Cholesterol Level 119 MG/DL (< 200) LDL Cholesterol 32 mg/dL (<100) HDL Cholesterol 65 MG/DL (40-60) H Cholesterol/HDL Ratio 1.8 (3.3-4.4) L Vitamin B12 Level 1869 PG/ML (193-986) H Folate 6.4 NG/ML (8.6-58.9) L Thyroid Stimulating Hormone (TSH) 0.890 uiU/mL (0.358-3.740) Free Thyroxine 1.34 NG/DL (0.76-1.46) Test 05/19/20 11:30 05/19/20 15:48 Sodium Level 139 MMOL/L (136-145) Potassium Level 3.8 MMOL/L (3.5-5.1) Chloride Level 105 MMOL/L (98-107) Carbon Dioxide Level 29 MMOL/L (21-32) Anion Gap 5 mmol/L (5-15) Blood Urea Nitrogen 2 mg/dL (7-18) L Creatinine 0.8 MG/DL (0.55-1.30) Estimat Glomerular Filtration Rate > 60 mL/min (>60) Glucose Level 207 MG/DL (74-106) #H POC Whole Blood Glucose 176 MG/DL (74-106) H Pending Calcium Level 8.1 MG/DL (8.5-10.1) L Total Bilirubin 1.0 MG/DL (0.2-1.0) Aspartate Amino Transf (AST/SGOT) 685 U/L (15-37) H Alanine Aminotransferase (ALT/SGPT) 405 U/L (12-78) H Alkaline Phosphatase 133 U/L (46-116) H Total Protein 5.6 G/DL (6.4-8.2) L Albumin 3.0 G/DL (3.4-5.0) L Globulin 2.6 g/dL Albumin/Globulin Ratio 1.2 (1.0-2.7) Intake and Output 05/18/20 05/19/20 19:00 07:00 Intake Total 1750 ml 1898 ml Balance 1750 ml 1898 ml Intake Oral 250 ml IV Total 1500 ml 1898 ml # Voids 2 3 Objective PHYSICAL EXAMINATION: GENERAL: The patient is awake and responsive, in no acute distress. HEAD AND NECK: Pupils are equal and reactive to light. Extraocular movements are intact. Neck was supple. No JVD. LUNGS: Good air entry with no wheezing or rales. HEART: S1, S2. Regular rhythm. No gallops. ABDOMEN: Soft, nondistended, and nontender. Positive bowel sounds. EXTREMITIES: No cyanosis, clubbing, or edema. NEUROLOGIC: Cranial nerves II through XII grossly normal. Motor is 5/5 in all extremities. Gait is intact. RECTAL/GENITOURINARY: Refused and deferred. PSYCHIATRIC: Mood and affect is anxious. Assessment/Plan Assessment/Plan ASSESSMENT: 1. Uncontrolled diabetes type 1 with diabetic ketoacidosis. 2. History of depression and anxiety. 3. Hyponatremia. PLAN: 1. Admit the patient to step-down. 2. Aggressive IV hydration. 3. monitor blood glucose level closely 4. Off insulin drip; continue levemir and novolog sliding scale. 5. Dr. Wolff= Pulmonary and Critical Care. 6. DVT prophylaxis=heparin subcutaneous. 7. Code status is Full Code. Alfredo Chacon MD May 19, 2020 20:19
--- NOTE | 2020-05-19 21:41 | NUR ---
NURSE HAND-OFF REPORT: Important Events on Shift: Transferred to Telemetry room 207-1 as ordered. Patient Status: Stable Diet: NPO Pending Orders: N Pending Results/Labs: Y Pending MD notification: N Latest Vital Signs: Temperature 97.7 , Pulse 64 , B/P 115 /72 , Respiratory Rate 18 , O2 SAT 99 , Room Air, O2 Flow Rate . Vital Sign Comment: WNL EKG Rhythm: Sinus Rhythm Rhythm change?: N MD Notified?: - MD Response: Latest Simons Fall Score: 35 Fall Risk: Medium Risk Safety Measures: Call light Within Reach, Bed Alarm Zone 1, Side Rails Side Rails x2, Bed position Low and Locked. Fall Precautions: Yellow Socks Yellow Gown Door Sign Patient Fall Education Report given to MELL Zepeda.
--- NOTE | 2020-05-19 21:45 | NUR ---
NURSE NOTES: Patient received from MELL Torres. Patient is awake, alert and oriented x 4. Patient is able to stand up and walk with a steady gait. Patient is in room air satting at 99%. Patient has a left hand 22 gauge IV saline lock and left forearm 20 gauge saline lock. Patient belonging has been reviewed and signed by the patient. Received patient's insulin pen. Patient has no complaints as of this moment. Bed is in the lowest position, call light within reach. Will continue to monitor.
[2020-05-20] VITALS: BP 120/74
[2020-05-20 04:00] VITALS: BP 121/76
--- NOTE | 2020-05-20 06:16 | General Progress Note ---
Subjective ROS Limited/Unobtainable: Yes Allergies: Coded Allergies: NO KNOWN ALLERGIES (Unverified Allergy, Unknown, 08/20/15) Objective Last 24 Hour Vital Signs Date Time Temp Pulse Resp B/P (MAP) Pulse Ox O2 Delivery O2 Flow Rate FiO2 05/20/20 04:34 Room Air 05/20/20 04:00 64 05/20/20 04:00 97.5 64 20 121/76 (91) 100 05/20/20 00:00 Room Air 05/20/20 00:00 98.8 65 18 120/74 (89) 99 05/20/20 00:00 70 05/19/20 20:00 Room Air 05/19/20 20:00 64 05/19/20 20:00 97.7 62 18 115/72 (86) 99 05/19/20 16:00 61 05/19/20 16:00 Room Air 05/19/20 16:00 98.2 65 20 119/80 (93) 99 05/19/20 12:00 98.2 51 21 127/73 (91) 99 05/19/20 12:00 Room Air 05/19/20 12:00 52 05/19/20 08:00 Room Air 05/19/20 08:00 53 05/19/20 08:00 96.8 65 20 124/70 (88) 99 Intake and Output 05/19/20 05/20/20 19:00 07:00 Intake Total 1200 ml Balance 1200 ml Intake Oral 300 ml IV Total 900 ml # Voids 2 Laboratory Tests 05/19/20 06:25: POC Whole Blood Glucose [Pending] 05/19/20 09:24: POC Whole Blood Glucose 190H 05/19/20 11:30: POC Whole Blood Glucose 176H, Sodium Level 139, Potassium Level 3.8, Chloride Level 105, Carbon Dioxide Level 29, Anion Gap 5, Blood Urea Nitrogen 2L, Creatinine 0.8, Estimat Glomerular Filtration Rate > 60, Glucose Level 207#H, Calcium Level 8.1L, Total Bilirubin 1.0, Aspartate Amino Transf (AST/SGOT) 685H, Alanine Aminotransferase (ALT/SGPT) 405H, Alkaline Phosphatase 133H, Total Protein 5.6L, Albumin 3.0L, Globulin 2.6, Albumin/Globulin Ratio 1.2 05/19/20 15:48: POC Whole Blood Glucose [Pending] 05/19/20 21:26: POC Whole Blood Glucose [Pending] Height (Feet): 5 Height (Inches): 4.00 Weight (Pounds): 121 General Appearance: no apparent distress EENT: PERRL/EOMI Neck: normal alignment Cardiovascular: normal rate Respiratory/Chest: decreased breath sounds Abdomen: normal bowel sounds, non tender, soft Extremities: non-tender Assessment/Plan Problem List: (1) Elevated LFTs ICD Codes: R79.89 - Other specified abnormal findings of blood chemistry SNOMED: 193133494, 771528178 (2) Anemia ICD Codes: D64.9 - Anemia, unspecified SNOMED: 186739309 (3) Elevated LFTs ICD Codes: R79.89 - Other specified abnormal findings of blood chemistry SNOMED: 605547692, 880679696 (4) Diabetic ketoacidosis ICD Codes: E13.10 - Other specified diabetes mellitus with ketoacidosis without coma SNOMED: 51214165, 505300026 (5) Suicidal ideation ICD Codes: R45.851 - Suicidal ideations SNOMED: 0529966 (6) Depression ICD Codes: F32.9 - Major depressive disorder, single episode, unspecified SNOMED: 87049458 Assessment/Plan: ? shock liver . patient was hypotensive on 05/16 repeat LFTSs fu abd us hepatitis panel anemia work up Cristian Reyes MD May 20, 2020 06:16
[2020-05-20] MEDS: NovoLOG Insulin Flexpen SUBQ SCH ×4 (06:30→11:57)
--- NOTE | 2020-05-20 07:02 | General Progress Note ---
Subjective Allergies: Coded Allergies: NO KNOWN ALLERGIES (Unverified Allergy, Unknown, 08/20/15) All Systems: reviewed and negative except above Subjective events noted interval notes reviewed she is NPO Item Value Date Time Bedside Blood Glucose 238 mg/dl H 05/20/20 0636 Bedside Blood Glucose 201 mg/dl H 05/19/20 2128 Bedside Blood Glucose 154 mg/dl H 05/19/20 1729 Bedside Blood Glucose 176 mg/dl H 05/19/20 1148 Bedside Blood Glucose 190 mg/dl H 05/19/20 0926 Objective Last 24 Hour Vital Signs Date Time Temp Pulse Resp B/P (MAP) Pulse Ox O2 Delivery O2 Flow Rate FiO2 05/20/20 04:34 Room Air 05/20/20 04:00 64 05/20/20 04:00 97.5 64 20 121/76 (91) 100 05/20/20 00:00 Room Air 05/20/20 00:00 98.8 65 18 120/74 (89) 99 05/20/20 00:00 70 05/19/20 20:00 Room Air 05/19/20 20:00 64 05/19/20 20:00 97.7 62 18 115/72 (86) 99 05/19/20 16:00 61 05/19/20 16:00 Room Air 05/19/20 16:00 98.2 65 20 119/80 (93) 99 05/19/20 12:00 98.2 51 21 127/73 (91) 99 05/19/20 12:00 Room Air 05/19/20 12:00 52 05/19/20 08:00 Room Air 05/19/20 08:00 53 05/19/20 08:00 96.8 65 20 124/70 (88) 99 Intake and Output 05/19/20 05/20/20 19:00 07:00 Intake Total 1200 ml Balance 1200 ml Intake Oral 300 ml IV Total 900 ml # Voids 2 1 Laboratory Tests 05/19/20 09:24: POC Whole Blood Glucose 190H 05/19/20 11:30: POC Whole Blood Glucose 176H, Sodium Level 139, Potassium Level 3.8, Chloride Level 105, Carbon Dioxide Level 29, Anion Gap 5, Blood Urea Nitrogen 2L, Creatinine 0.8, Estimat Glomerular Filtration Rate > 60, Glucose Level 207#H, Calcium Level 8.1L, Total Bilirubin 1.0, Aspartate Amino Transf (AST/SGOT) 685H, Alanine Aminotransferase (ALT/SGPT) 405H, Alkaline Phosphatase 133H, Total Protein 5.6L, Albumin 3.0L, Globulin 2.6, Albumin/Globulin Ratio 1.2 05/19/20 15:48: POC Whole Blood Glucose [Pending] 05/19/20 21:26: POC Whole Blood Glucose [Pending] 05/20/20 06:24: POC Whole Blood Glucose [Pending] Height (Feet): 5 Height (Inches): 4.00 Weight (Pounds): 121 General Appearance: no apparent distress Neck: normal alignment Cardiovascular: normal rate Respiratory/Chest: lungs clear Abdomen: normal bowel sounds Pelvis: normal external exam Objective Current Medications Medications (Trade) Dose Ordered Sig/Kathi Route PRN Reason Start Time Stop Time Status Last Admin Dose Admin Acetaminophen (Tylenol) 650 mg Q4H PRN ORAL Fever 05/15/20 19:30 06/14/20 19:29 05/17/20 22:09 Albuterol/ Ipratropium (Albuterol/ Ipratropium) 3 ml Q4H PRN HHN Shortness of Breath 05/15/20 19:30 05/20/20 19:29 Dextrose (Dextrose 50%) 25 ml Q30M PRN IV Hypoglycemia 05/17/20 14:15 08/15/20 14:14 Dextrose (Dextrose 50%) 50 ml Q30M PRN IV Hypoglycemia 05/17/20 14:15 08/15/20 14:14 Escitalopram Oxalate (Lexapro) 10 mg Q24H ORAL 05/18/20 21:00 06/17/20 20:59 05/19/20 21:26 Folic Acid (Folate) 3 mg DAILY ORAL 05/19/20 09:45 06/18/20 09:44 05/19/20 10:36 Heparin Sodium (Porcine) (Heparin 5000 units/ml) 5,000 units EVERY 12 HOURS SUBQ 05/15/20 22:00 06/29/20 21:59 05/19/20 09:25 Insulin Aspart (NovoLOG) BEFORE MEALS AND HS SUBQ 05/17/20 16:30 08/15/20 16:29 05/20/20 06:36 Insulin Aspart (NovoLOG) 4 units NOVOTIAC SUBQ 05/20/20 06:30 08/18/20 06:29 Insulin Detemir (Levemir) 15 units DAILY SUBQ 05/20/20 09:00 08/15/20 14:29 Lorazepam (Ativan 2mg/ml 1ml) 2 mg Q2H PRN IV agitation 05/15/20 19:30 05/22/20 19:29 Morphine Sulfate (Morphine Sulfate) 4 mg Q4H PRN IVP Severe Pain (Pain Scale 7-10) 05/15/20 19:30 05/22/20 19:29 Nitroglycerin (Ntg) 0.4 mg Q5M PRN SL Prn Chest Pain 05/15/20 19:30 06/14/20 19:29 Ondansetron HCl (Zofran) 4 mg Q6H PRN IVP Nausea & Vomiting 05/15/20 19:30 06/14/20 19:29 05/18/20 13:20 Polyethylene Glycol (Miralax) 17 gm DAILYPRN PRN ORAL Constipation 05/15/20 19:30 06/14/20 19:29 Potassium Chloride (K-Dur) 40 meq TWICE A DAY ORAL 05/19/20 09:45 08/17/20 09:44 05/19/20 17:35 Assessment/Plan Problem List: (1) Diabetes type 1, uncontrolled ICD Codes: E10.65 - Type 1 diabetes mellitus with hyperglycemia SNOMED: 382317884, 909246208 (2) Diabetic ketoacidosis ICD Codes: E13.10 - Other specified diabetes mellitus with ketoacidosis without coma SNOMED: 92896710, 312759036 (3) Elevated LFTs ICD Codes: R79.89 - Other specified abnormal findings of blood chemistry SNOMED: 224966035, 799411320 Assessment/Plan: increase Levemir to 18 units daily continue Novolog 4 units ac tid - hold for NPO Novolog sliding scale ac / hs hypoglycemia protocol in order Rx provided for Levemir and Novolog pen in case of pump issues in the future Jonatan Burns MD May 20, 2020 07:02
--- NOTE | 2020-05-20 07:26 | NUR ---
NURSE HAND-OFF REPORT: Important Events on Shift:[Patient transferred from 2 W to 2 E room 207-1.] Patient Status: [] Diet: [NPO for abdominal ultrasound] Pending Orders: [] Pending Results/Labs:[] Pending MD notification:[] Latest Vital Signs: Temperature 97.5 , Pulse 64 , B/P 121 /76 , Respiratory Rate 20 , O2 SAT 100 , Room Air, O2 Flow Rate . Vital Sign Comment: [] EKG Rhythm: Sinus Rhythm Rhythm change?: N MD Notified?: - MD Response: Latest Simons Fall Score: 35 Fall Risk: Medium Risk Safety Measures: Call light Within Reach, Bed Alarm Zone 1, Side Rails Side Rails x2, Bed position Low and Locked. Fall Precautions: Yellow Socks Yellow Gown Door Sign Patient Fall Education Report given to [MELL Chavez].
[2020-05-20 07:32] LABS: HEMATOCRIT 33.6 % (37.0-47.0); HEMOGLOBIN 11.5 G/DL (12.0-16.0); MEAN CORPUSCULAR VOLUME 88 FL (80-99); PLATELET COUNT 125 K/UL (150-450)
[2020-05-20 07:42] LABS: % IRON SATURATION 16 % (15-50); IRON 36 ug/dL (50-175); TOTAL IRON BINDING CAPACITY 223 ug/dL (250-450)
[2020-05-20 07:49] LABS: ALANINE AMINOTRANSFERASE 340 U/L (12-78); ALBUMIN/GLOBULIN RATIO 0.9 (1.0-2.7); ALKALINE PHOSPHATASE 166 U/L (46-116); ANION GAP 11 mmol/L (5-15); ASPARTATE AMINO TRANSFERASE 386 U/L (15-37); BILIRUBIN,TOTAL 0.8 MG/DL (0.2-1.0); BLOOD UREA NITROGEN 6 mg/dL (7-18); CALCIUM 8.2 MG/DL (8.5-10.1); CARBON DIOXIDE 23 MMOL/L (21-32); CHLORIDE 103 MMOL/L (98-107); CREATININE 0.7 MG/DL (0.55-1.30); POTASSIUM 4.5 MMOL/L (3.5-5.1); SODIUM 137 MMOL/L (136-145)
[2020-05-20 08:00] VITALS: BP 119/67
[2020-05-20] MEDS ORDERED: Levemir Flexpen SUBQ SCH ×2 (09:00)
[2020-05-20] MEDS: Heparin 5000 units/ml inj SUBQ SCH (09:00)
--- NOTE | 2020-05-20 11:21 | Cardiac Electrophysiology PN ---
Assessment/Plan Assessment/Plan 1. Sinus Bradycardia. Patient is not on any sinus nancy affecting agent. Patient denies any syncope, presyncope, or any prior cardiac history. Her echocardiogram also showed normal left ventricular systolic function and her TSH was within normal range of 1.461. HR better at 70s now 3. Diabetic ketoacidosis. Further evaluation by Dr. Castro, on insulin. 4. Leukopenia and thrombocytopenia. 5. Depression with history of suicidal ideation, on Lexapro. JOSÉ RN Subjective Subjective Alert in NAD. Had sinus jeramy 50 on 12 lead ECG. HR better now in 70s Objective Last 24 Hour Vital Signs Date Time Temp Pulse Resp B/P (MAP) Pulse Ox O2 Delivery O2 Flow Rate FiO2 05/20/20 08:00 66 05/20/20 08:00 Room Air 05/20/20 08:00 97.7 62 18 119/67 (84) 98 05/20/20 04:34 Room Air 05/20/20 04:00 64 05/20/20 04:00 97.5 64 20 121/76 (91) 100 05/20/20 00:00 Room Air 05/20/20 00:00 98.8 65 18 120/74 (89) 99 05/20/20 00:00 70 05/19/20 20:00 Room Air 05/19/20 20:00 64 05/19/20 20:00 97.7 62 18 115/72 (86) 99 05/19/20 16:00 61 05/19/20 16:00 Room Air 05/19/20 16:00 98.2 65 20 119/80 (93) 99 05/19/20 12:00 98.2 51 21 127/73 (91) 99 05/19/20 12:00 Room Air 05/19/20 12:00 52 Intake and Output 05/19/20 05/20/20 19:00 07:00 Intake Total 1200 ml Balance 1200 ml Intake Oral 300 ml IV Total 900 ml # Voids 2 1 Laboratory Tests Test 05/19/20 11:30 05/19/20 15:48 05/19/20 21:26 05/20/20 05:54 Sodium Level 139 MMOL/L (136-145) 137 MMOL/L (136-145) Potassium Level 3.8 MMOL/L (3.5-5.1) 4.5 MMOL/L (3.5-5.1) Chloride Level 105 MMOL/L (98-107) 103 MMOL/L (98-107) Carbon Dioxide Level 29 MMOL/L (21-32) 23 MMOL/L (21-32) Anion Gap 5 mmol/L (5-15) 11 mmol/L (5-15) Blood Urea Nitrogen 2 mg/dL (7-18) L 6 mg/dL (7-18) L Creatinine 0.8 MG/DL (0.55-1.30) 0.7 MG/DL (0.55-1.30) Estimat Glomerular Filtration Rate > 60 mL/min (>60) > 60 mL/min (>60) Glucose Level 207 MG/DL (74-106) #H 266 MG/DL (74-106) H POC Whole Blood Glucose 176 MG/DL (74-106) H Pending Pending Calcium Level 8.1 MG/DL (8.5-10.1) L 8.2 MG/DL (8.5-10.1) L Total Bilirubin 1.0 MG/DL (0.2-1.0) 0.8 MG/DL (0.2-1.0) Aspartate Amino Transf (AST/SGOT) 685 U/L (15-37) H 386 U/L (15-37) H Alanine Aminotransferase (ALT/SGPT) 405 U/L (12-78) H 340 U/L (12-78) H Alkaline Phosphatase 133 U/L (46-116) H 166 U/L (46-116) H Total Protein 5.6 G/DL (6.4-8.2) L 6.2 G/DL (6.4-8.2) L Albumin 3.0 G/DL (3.4-5.0) L 3.0 G/DL (3.4-5.0) L Globulin 2.6 g/dL 3.2 g/dL Albumin/Globulin Ratio 1.2 (1.0-2.7) 0.9 (1.0-2.7) L White Blood Count 3.0 K/UL (4.8-10.8) L Red Blood Count 3.80 M/UL (4.20-5.40) L Hemoglobin 11.5 G/DL (12.0-16.0) L Hematocrit 33.6 % (37.0-47.0) L Mean Corpuscular Volume 88 FL (80-99) Mean Corpuscular Hemoglobin 30.3 PG (27.0-31.0) Mean Corpuscular Hemoglobin Concent 34.3 G/DL (32.0-36.0) Red Cell Distribution Width 12.0 % (11.6-14.8) Platelet Count 125 K/UL (150-450) L Mean Platelet Volume 9.0 FL (6.5-10.1) Neutrophils (%) (Auto) % (45.0-75.0) Lymphocytes (%) (Auto) % (20.0-45.0) Monocytes (%) (Auto) % (1.0-10.0) Eosinophils (%) (Auto) % (0.0-3.0) Basophils (%) (Auto) % (0.0-2.0) Differential Total Cells Counted 100 Neutrophils % (Manual) 61 % (45-75) Lymphocytes % (Manual) 33 % (20-45) Monocytes % (Manual) 6 % (1-10) Eosinophils % (Manual) 0 % (0-3) Basophils % (Manual) 0 % (0-2) Band Neutrophils 0 % (0-8) Platelet Estimate Decreased L Platelet Morphology Normal Red Blood Cell Morphology Normal Iron Level 36 ug/dL (50-175) L Total Iron Binding Capacity 223 ug/dL (250-450) L Percent Iron Saturation 16 % (15-50) Unsaturated Iron Binding 187 ug/dL (112-346) Gamma Glutamyl Transpeptidase 235 U/L (5-85) H Hepatitis A IgM Antibody Pending Hepatitis B Surface Antigen Pending Hepatitis B Core IgM Antibody Pending Hepatitis C Antibody Pending Test 05/20/20 06:24 POC Whole Blood Glucose Pending Objective HEAD AND NECK: Showed no JVD. LUNGS: Clear. CARDIOVASCULAR: Shows regular jeramy S1 and S2 with no gallop. ABDOMEN: Soft. EXTREMITIES: No pitting edema. Dino Shah MD May 20, 2020 11:21
--- NOTE | 2020-05-20 11:57 | Diagnostic Imaging Report ---
Indication: Abnormal liver function tests Technique: Flaherty-scale and duplex images of the upper abdomen were obtained Comparison: none Findings: Gallbladder is unremarkable, without stones, wall thickening, nor pericholecystic fluid. Sonographic Wasserman's sign is negative. Common bile duct measures 4 mm in diameter. No intrahepatic biliary ductal dilatation. Liver demonstrates normal echogenicity, no focal abnormality. Portal vein and hepatic veins are patent. Pancreas is unremarkable. Spleen is unremarkable. Left kidney measures 10.5 cm in length. Right kidney measures 11.2 cm length. Both kidneys demonstrate normal echogenicity. There is no hydronephrosis. There is a 3 mm calcification seen in the left renal sinus . Non-aneurysmal abdominal aorta . Impression: Probable nonobstructive left collecting system calculus Otherwise negative
[2020-05-20 12:00] VITALS: BP 123/74
--- NOTE | 2020-05-20 12:23 | NUR ---
CASE MANAGEMENT:REVIEW 05/20/20 SI: DKA. UNCONTROLLED DM ELEVATED LFT'S 98.2 69 20 123/74 97% ON RA WBC-3.0 H/H-11.5/33.6 PLT-125 GLUCOSE+266 AST/ALT+386/340 IS: LEVEMIR 18U SQ QD NOVOLOG 4 UNIT SQ TID SS INSULIN AC+HS FOLATE PO QD K-DUR PO BID LEXAPRO PO Q24 : TELEMETRY STATUS DCP: FROM HOME PLAN: PLAN TO DISCHARGE HOME TODAY AFTER MD MAKES ROUNDS
--- NOTE | 2020-05-20 12:40 | NUR ---
NURSE HAND-OFF REPORT: Important Events on Shift:[] Patient Status: [] Diet: [] Pending Orders: [] Pending Results/Labs:[] Pending MD notification:[] Latest Vital Signs: Temperature 98.2 , Pulse 69 , B/P 123 /74 , Respiratory Rate 20 , O2 SAT 97 , Room Air, O2 Flow Rate . Vital Sign Comment: [] EKG Rhythm: Sinus Rhythm Rhythm change?: N MD Notified?: - MD Response: Latest Simons Fall Score: 35 Fall Risk: Medium Risk Safety Measures: Call light Within Reach, Bed Alarm Zone 1, Side Rails Side Rails x2, Bed position Low and Locked. Fall Precautions: Yellow Socks Yellow Gown Door Sign Patient Fall Education Report given to [Gema MONTE].
--- NOTE | 2020-05-20 12:44 | Pulmonology Progress Note ---
Subjective ROS Limited/Unobtainable: Yes Allergies: Coded Allergies: NO KNOWN ALLERGIES (Unverified Allergy, Unknown, 08/20/15) All Systems: reviewed and negative except above Objective Last 24 Hour Vital Signs Date Time Temp Pulse Resp B/P (MAP) Pulse Ox O2 Delivery O2 Flow Rate FiO2 05/20/20 12:02 Room Air 05/20/20 12:00 98.2 69 20 123/74 (90) 97 05/20/20 08:00 66 05/20/20 08:00 Room Air 05/20/20 08:00 97.7 62 18 119/67 (84) 98 05/20/20 04:34 Room Air 05/20/20 04:00 64 05/20/20 04:00 97.5 64 20 121/76 (91) 100 05/20/20 00:00 Room Air 05/20/20 00:00 98.8 65 18 120/74 (89) 99 05/20/20 00:00 70 05/19/20 20:00 Room Air 05/19/20 20:00 64 05/19/20 20:00 97.7 62 18 115/72 (86) 99 05/19/20 16:00 61 05/19/20 16:00 Room Air 05/19/20 16:00 98.2 65 20 119/80 (93) 99 Intake and Output 05/19/20 05/20/20 19:00 07:00 Intake Total 1200 ml Balance 1200 ml Intake Oral 300 ml IV Total 900 ml # Voids 2 1 General Appearance: WD/WN HEENT: atraumatic, anicteric Respiratory: chest wall non-tender, no respiratory distress Cardiovascular: normal peripheral pulses, normal rate Abdomen: normal bowel sounds, soft, non tender 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 II-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 grossly normal, no motor/sensory deficits Lymphatic: no neck adenopathy Laboratory Tests 05/19/20 15:48: POC Whole Blood Glucose [Pending] 05/19/20 21:26: POC Whole Blood Glucose [Pending] 05/20/20 05:54: White Blood Count 3.0L, Red Blood Count 3.80L, Hemoglobin 11.5L, Hematocrit 33.6L, Mean Corpuscular Volume 88, Mean Corpuscular Hemoglobin 30.3, Mean Corpuscular Hemoglobin Concent 34.3, Red Cell Distribution Width 12.0, Platelet Count 125L, Mean Platelet Volume 9.0, Neutrophils (%) (Auto) , Lymphocytes (%) (Auto) , Monocytes (%) (Auto) , Eosinophils (%) (Auto) , Basophils (%) (Auto) , Differential Total Cells Counted 100, Neutrophils % (Manual) 61, Lymphocytes % (Manual) 33, Monocytes % (Manual) 6, Eosinophils % (Manual) 0, Basophils % (Manual) 0, Band Neutrophils 0, Platelet Estimate DecreasedL, Platelet Morphology Normal, Red Blood Cell Morphology Normal, Sodium Level 137, Potassium Level 4.5, Chloride Level 103, Carbon Dioxide Level 23, Anion Gap 11, Blood Urea Nitrogen 6L, Creatinine 0.7, Estimat Glomerular Filtration Rate > 60, Glucose Level 266H, Calcium Level 8.2L, Iron Level 36L, Total Iron Binding Capacity 223L, Percent Iron Saturation 16, Unsaturated Iron Binding 187, Total Bilirubin 0.8, Gamma Glutamyl Transpeptidase 235H, Aspartate Amino Transf (AST/SGOT) 386H, Alanine Aminotransferase (ALT/SGPT) 340H, Alkaline Phosphatase 166H, Total Protein 6.2L, Albumin 3.0L, Globulin 3.2, Albumin/Globulin Ratio 0.9L, Hepatitis A IgM Antibody [Pending], Hepatitis B Surface Antigen [Pending], Hepatitis B Core IgM Antibody [Pending], Hepatitis C Antibody [Pending] 05/20/20 06:24: POC Whole Blood Glucose [Pending] Current Medications Medications (Trade) Dose Ordered Sig/Kathi Route PRN Reason Start Time Stop Time Status Last Admin Dose Admin Acetaminophen (Tylenol) 650 mg Q4H PRN ORAL Fever 05/15/20 19:30 06/14/20 19:29 05/17/20 22:09 Albuterol/ Ipratropium (Albuterol/ Ipratropium) 3 ml Q4H PRN HHN Shortness of Breath 05/15/20 19:30 05/20/20 19:29 Dextrose (Dextrose 50%) 25 ml Q30M PRN IV Hypoglycemia 05/17/20 14:15 08/15/20 14:14 Dextrose (Dextrose 50%) 50 ml Q30M PRN IV Hypoglycemia 05/17/20 14:15 08/15/20 14:14 Escitalopram Oxalate (Lexapro) 10 mg Q24H ORAL 05/18/20 21:00 06/17/20 20:59 05/19/20 21:26 Folic Acid (Folate) 3 mg DAILY ORAL 05/19/20 09:45 06/18/20 09:44 05/20/20 09:48 Heparin Sodium (Porcine) (Heparin 5000 units/ml) 5,000 units EVERY 12 HOURS SUBQ 05/15/20 22:00 06/29/20 21:59 05/19/20 09:25 Insulin Aspart (NovoLOG) BEFORE MEALS AND HS SUBQ 05/17/20 16:30 08/15/20 16:29 05/20/20 11:19 Insulin Aspart (NovoLOG) 4 units NOVOTIAC SUBQ 05/20/20 06:30 08/18/20 06:29 05/20/20 11:57 Insulin Detemir (Levemir) 18 units DAILY SUBQ 05/20/20 09:00 08/15/20 14:29 05/20/20 09:55 Lorazepam (Ativan 2mg/ml 1ml) 2 mg Q2H PRN IV agitation 05/15/20 19:30 05/22/20 19:29 Morphine Sulfate (Morphine Sulfate) 4 mg Q4H PRN IVP Severe Pain (Pain Scale 7-10) 05/15/20 19:30 05/22/20 19:29 Nitroglycerin (Ntg) 0.4 mg Q5M PRN SL Prn Chest Pain 05/15/20 19:30 06/14/20 19:29 Ondansetron HCl (Zofran) 4 mg Q6H PRN IVP Nausea & Vomiting 05/15/20 19:30 06/14/20 19:29 05/18/20 13:20 Polyethylene Glycol (Miralax) 17 gm DAILYPRN PRN ORAL Constipation 05/15/20 19:30 06/14/20 19:29 Potassium Chloride (K-Dur) 40 meq TWICE A DAY ORAL 05/19/20 09:45 08/17/20 09:44 05/20/20 09:49 Assessment/Plan Problems: (1) Diabetic ketoacidosis Assessment/Plan BS better controlled Endocrinology wrote the prescription for insulin dc home with f/u with primary Sterling Wolff MD May 20, 2020 12:44
--- NOTE | 2020-05-20 14:11 | Nephrology Progress Note ---
Assessment/Plan Problem List: (1) Diabetic ketoacidosis (2) Diabetes type 1, uncontrolled (3) Hypokalemia (4) Elevated LFTs (5) Electrolyte imbalance Assessment Elevated LFTs Low potassium, low magnesium Anemia, leukopenia Hyponatremia on admission was due to hyperglycemia which is now resolved Admitting presentation uncontrolled diabetes type 1 with diabetic ketoacidosis History of depression and anxiety Plan May 20: Electrolytes within normal limits. Liver enzymes remains elevated, though improved as compared to yesterday. 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 Discussed with RN Abdominal ultrasound ordered for evaluation of elevated LFTs Magnesium and potassium supplement given Continue per consultants Anemia work-up Monitor electrolytes Abdominal ultrasound results: Findings: Gallbladder is unremarkable, without stones, wall thickening, nor pericholecystic fluid. Sonographic Wasserman's sign is negative. Common bile duct measures 4 mm in diameter. No intrahepatic biliary ductal dilatation. Liver demonstrates normal echogenicity, no focal abnormality. Portal vein and hepatic veins are patent. Pancreas is unremarkable. Spleen is unremarkable. Left kidney measures 10.5 cm in length. Right kidney measures 11.2 cm length. Both kidneys demonstrate normal echogenicity. There is no hydronephrosis. There is a 3 mm calcification seen in the left renal sinus . Non-aneurysmal abdominal aorta . Impression: Probable nonobstructive left collecting system calculus Otherwise negative Subjective ROS Limited/Unobtainable: No Constitutional: Reports: malaise Objective Objective Last 24 Hour Vital Signs Date Time Temp Pulse Resp B/P (MAP) Pulse Ox O2 Delivery O2 Flow Rate FiO2 05/20/20 12:02 Room Air 05/20/20 12:00 98.2 69 20 123/74 (90) 97 05/20/20 12:00 76 05/20/20 08:00 66 05/20/20 08:00 Room Air 05/20/20 08:00 97.7 62 18 119/67 (84) 98 05/20/20 04:34 Room Air 05/20/20 04:00 64 05/20/20 04:00 97.5 64 20 121/76 (91) 100 05/20/20 00:00 Room Air 05/20/20 00:00 98.8 65 18 120/74 (89) 99 05/20/20 00:00 70 05/19/20 20:00 Room Air 05/19/20 20:00 64 05/19/20 20:00 97.7 62 18 115/72 (86) 99 05/19/20 16:00 61 05/19/20 16:00 Room Air 05/19/20 16:00 98.2 65 20 119/80 (93) 99 Intake and Output 05/19/20 05/20/20 19:00 07:00 Intake Total 1200 ml Balance 1200 ml Intake Oral 300 ml IV Total 900 ml # Voids 2 1 Laboratory Tests 05/19/20 15:48: POC Whole Blood Glucose [Pending] 05/19/20 21:26: POC Whole Blood Glucose [Pending] 05/20/20 05:54: White Blood Count 3.0L, Red Blood Count 3.80L, Hemoglobin 11.5L, Hematocrit 33.6L, Mean Corpuscular Volume 88, Mean Corpuscular Hemoglobin 30.3, Mean Corpuscular Hemoglobin Concent 34.3, Red Cell Distribution Width 12.0, Platelet Count 125L, Mean Platelet Volume 9.0, Neutrophils (%) (Auto) , Lymphocytes (%) (Auto) , Monocytes (%) (Auto) , Eosinophils (%) (Auto) , Basophils (%) (Auto) , Differential Total Cells Counted 100, Neutrophils % (Manual) 61, Lymphocytes % (Manual) 33, Monocytes % (Manual) 6, Eosinophils % (Manual) 0, Basophils % (Manual) 0, Band Neutrophils 0, Platelet Estimate DecreasedL, Platelet Morphology Normal, Red Blood Cell Morphology Normal, Sodium Level 137, Potassium Level 4.5, Chloride Level 103, Carbon Dioxide Level 23, Anion Gap 11, Blood Urea Nitrogen 6L, Creatinine 0.7, Estimat Glomerular Filtration Rate > 60, Glucose Level 266H, Calcium Level 8.2L, Iron Level 36L, Total Iron Binding Capacity 223L, Percent Iron Saturation 16, Unsaturated Iron Binding 187, Total Bilirubin 0.8, Gamma Glutamyl Transpeptidase 235H, Aspartate Amino Transf (AST/SGOT) 386H, Alanine Aminotransferase (ALT/SGPT) 340H, Alkaline Phosphatase 166H, Total Protein 6.2L, Albumin 3.0L, Globulin 3.2, Albumin/Globulin Ratio 0.9L, Hepatitis A IgM Antibody [Pending], Hepatitis B Surface Antigen [Pending], Hepatitis B Core IgM Antibody [Pending], Hepatitis C Antibody [Pending] 05/20/20 06:24: POC Whole Blood Glucose [Pending] Height (Feet): 5 Height (Inches): 4.00 Weight (Pounds): 121 General Appearance: no apparent distress Cardiovascular: normal rate Respiratory/Chest: lungs clear Abdomen: soft Jeff Saavedra MD May 20, 2020 14:11
[2020-05-20] MEDS ORDERED: Tubing IV Secondary IV ONE (14:49)
[2020-05-20] MEDS ORDERED: NS 275ml ONE (14:49)
--- NOTE | 2020-05-20 16:09 | CDS Physician Query ---
Clarification is required for compliance, coding accuracy, and to reflect severity of illness for this patient. Dear Dr. Derek Brandt M.D Date: 05/20/20 CDI/CDS : Primitivo Casiano 29-year-old female with past medical history significant for diabetes type 1, was on an insulin pump, as well as history of depression and anxiety with prior history of suicidal ideation, who presented to the hospital complaining about elevated blood glucose level. [H&P Derek Brandt M.D. 05/16/20] ASSESSMENT: 1. Uncontrolled diabetes type 1 with diabetic ketoacidosis. 2. History of depression and anxiety. 3. Hyponatremia. Assessment/Plan: ? shock liver , patient was hypotensive on 05/16, repeat LFTSs, fu abd us, hepatitis panel, anmeia work up LABORATORY DATA: On admission, WBC of 7.3, hemoglobin 11, hematocrit 35, platelets 150,000. ABG, pH of 7.29, pCO2 of 36, pO2 of 34. This was venous BG. The patient's sodium is 131, potassium 4.2, chloride 95, bicarb 17, BUN 9, creatinine 1.2. Glucose level is 557. Lactic acid 2.60. Liver functions essentially unremarkable. Beta-HCG is negative. Lipase is 83. PT of 11, INR 1.0, PTT of 25. Urine drug screen is negative. Acetone level is positive, small. Urinalysis - +4 glucose, +3 ketones, negative nitrite, negative leukocytes, 5 to 10 rbc's. A posssible diagnois of "shock liver" was made in the medical record on PN Cristian Reyes MD. [05/19, 05/20/20] Upon review, it is difficult to determine whether this diagnosis has been ruled in, ruled out,or is still being worked up. Please indicate below the status of the aforementioned diagnosis. [X] Treated and resolve [] Presumed and treated [] Currently under treatment [] Still being worked-up [] Ruled out Present on Admission: [] Yes [] No [] Clinically Undetermined Physician signature Date Please also document in your Progress Notes and/or Discharge Summary and indicate if the condition was present on admission. VENANCIOD
--- NOTE | 2020-05-22 07:51 | Discharge Summary ---
Discharge Summary Discharge Summary _ DATE OF ADMISSION: 05/15/2020 DATE OF DISCHARGE: 05/20/2020 DISCHARGED BY: Dr. Brandt REASON FOR ADMISSION: 29 years old female with past medical history significant for diabetes mellitus type 1, was on insulin pump prior, history of depression , anxiety , history of suicidal ideation in the past, presented to the hospital complaining of elevated blood glucose. Patient reported that she ran of insulin from the insulin pump, and was giving herself insulin injection. She woke up in the morning feeling weak and dizzy. She also reported that she felt like she had urinary tract infection . She reported nausea and nonbloody nonbilious emesis. No fever or chills. No chest pain or shortness of breath. No abdominal pain or diarrhea. P Patient was waiting to get her insulin pump supply for the past 2 weeks and noted that her blood glucose was over 500. Upon evaluation in emergency room vital signs were stable. Laboratory work-up revealed stable CBC. Chemistry demonstrated sodium 131, potassium 4.2, anion gap 19. Glucose 557. Stable renal parameters. Lactic acid 2.6. Urinalysis revealed no evidence of UT, +4 glucose Stable LFT and lipase. Urine toxicology screen was negative. EKG revealed sinus rhythm, no acute ischemic changes. Patient started on generous IV hydration , insulin drip and admitted to ICU for further management. CONSULTANTS: poker in Dr. Burns commercial energy auditor Dr. Quezada critical care Dr. Wolff GI specialist Dr. Luque manager ambulatory Dr. Saavedra [facility]SE: Patient admitted to ICU. Patient was generously hydrated. Insulin drip continued as per protocol . Water Resource Manager closely followed. After anion gap closed patient started on long-acting insulin Levemir, short acting insulin Novolog pre-meal and sliding scale of short acting insulin Novolog in addition as needed. Hypoglycemia protocol was in order. Hemoglobin A1c 8.2. Diabetic diet and diabetic teaching provided. Blood sugar stabilized. Prescription for Levemir and NovoLog were given to patient in case of pump issues in the future's. Patient had sinus bradycardia . Manager Program Management consulted . Echocardiogram revealed preserved ejection fraction. Patient was not on any sinus nancy affecting agent. Patient denied any syncope, presyncope or prior cardiac history. TSH within normal limits. Heart rate stabilized. Patient developed transient hypotension on 05/16 with blood pressure 87/39 , responding to hydration. LFTs started to pickling solution maker the next day. GI specialist followed. Abdominal ultrasound revealed probably nonobstructive left collecting system calculus , otherwise negative . Hepatitis panel was negative. After reaching plateau, LFTs started to trend down. Patient was hypotensive prior ( as mentioned above), GI specialist suspected possible shock liver. LFTs started to trend down. Patient was recommended to follow-up with LFT count as outpatient. Patient had a mild anemia. Hemoglobin and hematocrit were closely monitored with goal to keep hemoglobin above 7. Anemia work-up was consistent with anemia of chronic disease. Prior to discharge hemoglobin 11.5, hematocrit 33.6. Renal parameters and electrolytes were closely monitored ,electrolytes corrected as needed , nephrotoxic's were avoided. Antidepressant continued. Supportive care provided. DVT prophylaxis provided. Bowel regimen instituted. Patient clinically stabilized and was ready for discharge . FINAL DIAGNOSES: Diabetic ketoacidosis Diabetes mellitus type [id number] Hypotension- resolved Elevated LFT, possibly due to shock liver Anemia Electrolytes imbalance Depression History of suicidal ideation DISCHARGE MEDICATIONS: See Medication Reconciliation list. DISCHARGE INSTRUCTIONS: Patient was discharged home. Follow-up with a primary care provider in 1 week. I have been assigned to dictate discharge summary for this account. I was not involved in the patient's management. Julia Durant NP May 22, 2020 07:51
== END 2020-05-20 14:50 | disposition home or self-care (01) | DRG 420 ==
LOC: EMR 16:25 → ICU 18:50 → EDBEDREQ 21:26 → EDBEDREQSVC 21:42 → 2W 23:58 → 2E 05-19 21:50
DX: E10.10 Type 1 diabetes mellitus with ketoacidosis without coma (principal); K72.00 Acute and subacute hepatic failure without coma; F41.9 Anxiety disorder, unspecified; E87.1 Hypo-osmolality and hyponatremia; D64.9 Anemia, unspecified; E87.6 Hypokalemia; E61.2 Magnesium deficiency; I95.9 Hypotension, unspecified; E87.8 Other disorders of electrolyte and fluid balance, not elsewhere classified; F32.9 Major depressive disorder, single episode, unspecified; Z79.4 Long term (current) use of insulin; R00.1 Bradycardia, unspecified; D69.6 Thrombocytopenia, unspecified
CPT/HCPCS: 36415; 76700; 80048; 80053; 80061; 80076; 80307; 81003; 82009; 82607; 82728; 82746; 82803; 82962; 82977; 83036; 83540; 83550; 83605; 83690; 83735; 83880; 84100; 84439; 84443; 84484; 84550; 84703; 85007; 85025; 85610; 85730; 86140; 86705; 86709; 86803; 87040; 87081; 87340; 93005; 93306; 96361; 96365; 96366; 96375; 99291; J1815; J2405; J7030; J8499; S5561